=== PATIENT | male | born 1955 | race Caucasian/White ===

== ENCOUNTER 2019-05-23 20:28 | Inpatient (IN) | payer BC ==
[2019-05-23] MEDS ORDERED: NS 0.9% 1000 ML** 1,000 ML IV ONE (20:35)
[2019-05-23] MEDS ORDERED: fentaNYL* 50 MCG/ML 2 ML VIAL (100 MCG VIAL) IV SLOW PU ONE (20:35)
--- NOTE | 2019-05-23 20:47 | ED ---
Abdominal Pain/Male - HPI Summary HPI Summary: Patient is a 63 y/o M presenting to [facility] via EMS from [facility] for evaluation of confirmed perforated bowel. Patient had onset of abdominal pain around 1500 05/23/19. Pain worsened later in the day. EMS has administered 100 mcg of fentanyl approximately 45 minutes [employer]LECT[employer]TA[employer] AD[employer]. Patient describes his current pain as severe and notes movement aggravates his pain. Chest pain is denied. He denies history of abdominal surgery. On triage, pain is rated 7/10. PMHx if diabetes and HLD noted. Home medications and allergies are reviewed. - History of Current Complaint Stated Complaint: ABD PAIN/PERORATED BOWEL PER EMS Time Seen by Provider: 05/23/19 20:33 Hx Obtained From: Patient Onset/Duration: Still Present Timing: Constant Severity Currently: Severe Pain Scale Used: 0-10 Numeric Aggravating Factor(s): Movement Associated Signs And Symptoms: Negative: Chest Pain - Allergies/Home Medications Allergies/Adverse Reactions: Allergies Allergy/AdvReac Type Severity Reaction Status Date / Time No Known Allergies Allergy Verified 05/23/19 20:55 Home Medications: Home Medications Atorvastatin* [Lipitor*] 20 mg PO QPM 05/23/19 [History Confirmed 05/23/19] Enalapril TAB* [Vasotec TAB*] 20 mg PO DAILY 05/23/19 [History Confirmed ] Fenofibrate [Tricor 160 MG] 160 mg PO DAILY 05/23/19 [History Confirmed 05/23/19 ] Metformin HCl 1,000 mg PO ONCE 05/23/19 [History Confirmed 05/23/19] Metformin HCl 500 mg PO BEDTIME 05/23/19 [History Confirmed 05/23/19] PMH/Surg Hx/FS Hx/Imm Hx Endocrine/Hematology History: Reports: Hx Diabetes Cardiovascular History: Reports: Hx Hypercholesterolemia - Family History Known Family History: Positive: Other - throat CA - Social History Alcohol Use: None Substance Use Type: Reports: None Smoking Status (MU): Never Smoked Tobacco Review of Systems Negative: Chest Pain Positive: Abdominal Pain All Other Systems Reviewed And Are Negative: Yes Physical Exam - Summary Physical Exam Summary: Appearance: Well-appearing, Well-nourished, lying in bed comfortably Skin: Warm, dry, no obvious rash Eyes: sclera anicteric, no conjunctival pallor ENT: mucous membranes moist, pharynx appears normal Neck: Supple, nontender Respiratory: Clear to auscultation, no signs of respiratory distress Cardiovascular: Normal S1, S2. No murmurs. Normal distal pulses in tibial and radial bilaterally. Abdomen: Diffusely rigid abdomen noted, normal active bowel sounds present Musculoskeletal: Normal, Strength/ROM Intact Neurological: A&Ox3, awake and alert, mentation is normal, speech is fluent and appropriate Psychiatric: affect is normal, does not appear anxious or depressed Triage Information Reviewed: Yes Vital Signs Reviewed: Yes Procedures - Sedation Patient Received Moderate/Deep Sedation with Procedure: No Diagnostics - Laboratory Lab Statement: Any lab studies that have been ordered have been reviewed, and results considered in the medical decision making process. - EKG 2140 Cardiac Rate: Tachycardia - rate of 105 BPM EKG Rhythm: Sinus Tachycardia Summary of EKG Findings: EKG showed sinus tachycardia with rate of 105 BPM, borderline left axis deviation, borderline T abnormalities, inferior leads. No STEMI. ED physician has reviewed and interpreted this EKG. Abdominal Pain Male Course/Dx - Course Course Of Treatment: Patient is a 63 y/o M presenting to [facility] via EMS from [facility] for evaluation of confirmed perforated bowel. Patient had onset of abdominal pain around 1500 05/23/19. Pain worsened later in the day. EMS has administered 100 mcg of fentanyl approximately 45 minutes [employer] AD[employer]. Patient describes his current pain as severe and notes movement aggravates his pain. Chest pain is denied. On exam, patient's abdomen is noted to be diffusely rigid. EKG showed sinus tachycardia with rate of 105 BPM, borderline left axis deviation, borderline T abnormalities, inferior leads. No STEMI. Patient's case was discussed with Dr. Loya. He accepts patient to his services and will evaluate the patient in ED. - Diagnoses Provider Diagnoses: Perforated bowel - Provider Notifications Discussed Care Of Patient With: Martin Loya Time Discussed With Above Provider: 20:47 Instructed by Provider To: Other - Patient's case was discussed with Dr. Loya. He accepts patient to his services and will evaluate the patient in ED. Discharge ED - Sign-Out/Discharge Documenting (check all that apply): Patient Departure - admit All imaging exams completed and their final reports reviewed: No Studies - Discharge Plan Condition: Fair Disposition: ADMITTED TO [facility] - Billing Disposition and Condition Condition: FAIR Disposition: Admitted to [facility] - Attestation Statements Document Initiated by Tiki: Yes Documenting Scribe: VANESSA ARAMBULA Provider For Whom Tiki is Documenting (Include Credential): IDA SHELDON MD Scribe Attestation: I, VANESSA ARAMBULA, scribed for IDA SHELDON MD on 05/25/19 at 0501. Scribe Documentation Reviewed: Yes Provider Attestation: The documentation as recorded by the VANESSA sellers accurately reflects the service I personally performed and the decisions made by me, IDA SHELDON MD Status of Scribe Document: Viewed
[2019-05-23] MEDS ORDERED: ceFOXitin 2 GM IVPREMIX* 0 GM/0 ML BAG ONE (22:07)
--- NOTE | 2019-05-23 22:07 | HP ---
H&P (Free Text) History and Physical: cc: upper abdominal pain HPI: 63 yo M withe DM2, kidney stones, hyperlipidemia presented to [facility] with severe abdominal pain since 3pm. He has a day of upper abdominal pain with no associated N/V/D. No F/C. His appetite has been normal. He last ate a sandwich for lunch today. He then developed severe, stabbing pain and was unable to drive himself so his friend drove him. He did try Mylanta and thought that helped. He denies use of NSAIDs. He denies similar pain in the past. Currently his accompanies him. He had abnorma LFTs and BUN/Cr at [place]. CT scan without contrast showed free air. He was transferred to the [facility] ED. PMH: DM2, hyperlipidemia, nephrolithiasis PSH: surgical removal of kidney stones. 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 age 57, had "blood clots"; M from throat cancer age 82. ROS: pertinent +/- as reported above, otherwise 14 point review completed and negative. PE: Vital Signs Temp 98.9 F 05/23/19 20:32 Pulse 101 05/23/19 20:32 Resp 20 05/23/19 20:54 BP 155/87 05/23/19 20:32 Pulse Ox 97 05/23/19 20:32 Intake & Output 05/23/19 05/23/19 05/24/19 06:59 18:59 06:59 Weight 173 lb Gen: WDWN M lying in ED stretcher; A&Ox3. Neck: symmetrical, trachea M/L. Chest: CTA B; reg s1s2 Abd: no scars; rigid and diffusely tender with no BS Ext: warm; no c/c/e; no CT Lab from [place] reviewed. CT images reviewed by me and notable for free air and ascites. Impression: 63 yo M with acute abdomen, perforated viscus, most likely a perforated ulcer. Plan: To OR for laparoscopy/possible laparotomy for diagnosis and treatment of perforated viscus. The procedure was discussed as was need for general anesthesia. I explained that findings at the time of surgery would dictate the procedure performed and that he may need other surgeries in the future as well. The indications, risks, benefits, alternatives and option of no treatment were discussed. Risks were explained including, not limited to: bleeding, infection, pain, blood clots, pneumonia, cardiac events, N/V, hernia, SBO, and risk of anesthesia. All questions were answered. He stated his understanding and agreed to proceed.
[2019-05-23] MEDS ORDERED: fentaNYL* 50 MCG/ML 2 ML VIAL (100 MCG VIAL) ONE ×3 (22:12→23:37)
[2019-05-23] MEDS ORDERED: Rocuronium* 10 MG/ML VIAL ONE (22:20)
[2019-05-23] MEDS ORDERED: Midazolam* 1 MG/ML 2 ML VIAL (2 MG) ONE (22:21)
[2019-05-23] MEDS ORDERED: Bupivacaine 0.25% EPI 200,000* 30 ML SDV ONE (22:21)
[2019-05-23] MEDS ORDERED: Phenylephrine 40 MCG/ML SYRINGE ONE (23:06)
[2019-05-23] MEDS ORDERED: Phenylephrine 10 MG/ML VIAL* 1 ML VIAL ONE (23:06)
[2019-05-23] MEDS ORDERED: EPHEDrine (Pressors)* 50 MG/ML VIAL ONE (23:06)
[2019-05-23] MEDS ORDERED: Succinylcholine* 20 MG/ML 10 ML VIAL ONE (23:06)
[2019-05-23] MEDS ORDERED: DiMENhydriNATE IV* 50 MG/ML VIAL ONE (23:06)
[2019-05-23] MEDS ORDERED: Propofol* 10 MG/ML 20 ML BTL ONE (23:06)
[2019-05-23] MEDS ORDERED: Ondansetron INJ* 2 MG/ML VIAL ONE (23:06)
[2019-05-23] MEDS ORDERED: Ketorolac INJ* 30 MG/ML 1 ML VIAL ONE (23:06)
[2019-05-23] MEDS ORDERED: Lidocaine 2% PF * 5 ML VIAL ONE (23:06)
[2019-05-23] MEDS ORDERED: Dexamethasone IV* 4 MG/ML 1 ML (4 MG) ONE (23:06)
[2019-05-24] MEDS ORDERED: Neostigmine Methylsulfate* 1 MG/ML 10 ML VIAL (1 mg/ml) ONE (00:02)
[2019-05-24] MEDS ORDERED: Glycopyrrolate IV* 0.2 MG/ML 1 ML VIAL ONE (00:02)
[2019-05-24] MEDS ORDERED: Naloxone* 0.4 MG/ML 1 ML VIAL IV PRN (00:30)
[2019-05-24] MEDS ORDERED: HYDROmorphone INJ1* 1 MG/ML SYRINGE IV PRN (00:30)
[2019-05-24] MEDS ORDERED: Ondansetron INJ* 2 MG/ML VIAL IV PRN ×2 (00:30→00:54)
--- NOTE | 2019-05-24 01:03 | OP ---
Operative Report - Blank - Operative Report Date of Operation: 05/24/19 Note: PREOP DX:PERFORATED VISCUS POSTOP DX:PERFORATED GASTRIC ULCER PROC:LAP PRIMARY REPAIR OF ABOVE WITH OMENTAL PATCH SURG:MECENAS ASSIST:NONE ANES:GET;FLUFAS EBL:<30ML IVF:2.6 L CRYSTALLOID SPEC:NONE DRAIN:7MM SABI COMPL:NONE COND:STABLE TO RR FINDINGS:ANTERIOR PERFORATION OF PREPYLORIC ULCER WITH DIFFUSE PERITONITIS/ GASTRIC FLUID THROUGHOUT ABDOMEN CIRRHOTIC APPEARING LIVER
[2019-05-24] MEDS: Pantoprazole IV* 40 MG IV SCH ×3 (01:32→21:15)
[2019-05-24] MEDS ORDERED: ceFAZolin 2 GM PREMIX in ORs 2 GM/50 ML BAG IVPB SCH (02:00)
[2019-05-24] MEDS: NS 0.9% 1000 ML** 1,000 ML IV SCH ×3 (02:40→22:49)
[2019-05-24] MEDS: ceFAZolin 1 GM* Q8H (AddVan) IVPB SCH ×6 (02:56→18:57)
--- NOTE | 2019-05-24 03:51 | CONS ---
CC: Dr. Martin Loya; Dr. Kian Hawk * CONSULTATION REPORT: DATE OF CONSULT: 05/24/19 REFERRING PHYSICIAN: Dr. Loya. REASON FOR CONSULT: Postop management for diabetes and history of hypertension. HISTORY OF PRESENT ILLNESS: This is a 63-year-old gentleman with past medical history of diabetes, hypertension, dyslipidemia, previous history of nephrolithiasis, who came into [facility] for severe abdominal pain since 3 p.m. There was no associated nausea, vomiting, diarrhea, fever, or chills. His appetite has been normal. He ate some chicken during lunch, after which he had severe pain. He tried Mylanta without much help, so he finally decided to go to the [facility], at which point, a CT scan at [facility] revealed the patient having free air in abdomen and the patient was subsequently sent to [facility] and accepted by Dr. Loya for an urgent surgical evaluation. The patient had perforated gastric ulcer, which was patched and Medicine was consulted to manage the patient postoperatively. Intraoperatively, the patient did have episode of hypotension requiring 3 L of IV fluids and some pressors, but postoperatively his blood pressure has been stable. PAST MEDICAL HISTORY: As mentioned type 2 diabetes, dyslipidemia, hypertension , and nephrolithiasis. PAST SURGICAL HISTORY: Removal of kidney stones and now also had repair of the perforated gastric ulcer with an omental patch. HOME MEDICATIONS: The patient is currently on: 1. Metformin 1000 mg oral daily and 500 mg at bedtime. 2. TriCor 160 mg oral daily. 3. Vasotec 20 mg oral daily. 4. Atorvastatin 20 mg every evening. ALLERGIES: No known drug allergies. FAMILY HISTORY: Father at age 57 due to some blood clots. Mother at age 82 with throat cancer. SOCIAL HISTORY: No history of smoking. Does drink alcohol occasionally. Denies any other drug abuse. 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 He is , with 3 kids. REVIEW OF SYSTEMS: A 14-point review of systems did not reveal any information. PHYSICAL EXAM: Postoperative vital signs show BP of 165/95, heart rate 96, respiration rate 15, saturating 99% on room air, temperature recorded at 97.3. In general, the patient is arousable, but still a little drowsy due to anesthesia still not wearing off, but was able to follow simple commands and is oriented to place. was present at bedside, answering most of the questions. Head and Neck Examination: Atraumatic, normocephalic. Bilateral pupils are reactive. Oral mucosa was dry. Neck: Supple. No jugular venous distention. Heart Examination: S1, S2. Regular rate and rhythm. Lungs: Clear to auscultation bilaterally. No wheezing, rhonchi, or rales. Abdomen: The patient had surgical scars from laparoscopic procedure performed today with overall soft abdomen. Extremities: No cyanosis, clubbing, or edema. DIAGNOSTIC STUDIES/LAB DATA: The labs from [facility] revealed WBC of 6.9, hemoglobin and hematocrit stable at 12.8 and 37.7, platelet count was noted to be 187. Comprehensive metabolic panel showed sodium of 143, potassium 4.4, chloride 110, bicarb of 19, BUN elevated at 36, and creatinine elevated at 1.2, elevated when compared to his baseline labs from January 2019. The patient does have elevated BUN of 32 and creatinine of 1.92. LFTs were within normal limits. Amylase was 122. CT abdomen and pelvis, I do not see full official read from [facility] records; however, there is a document which says that the physician at [facility] discussed with the radiologist, who stated that he had a bowel perforation along with several diverticula and inflammation present around the liver. IMPRESSION: This is a 63-year-old gentleman with diabetes, hypertension, dyslipidemia, here with acute bowel, perforated gastric ulcer noted to be hypotensive intraoperatively, for postop medical management. ASSESSMENT: 1. Perforated gastric ulcer, status post surgical correction. 2. History of diabetes, currently n.p.o. 3. History of dyslipidemia. 4. History of hypertension, was hypotensive intraoperatively. 5. History of chronic kidney disease with minimal elevation in baseline creatinine according to [facility] records. PLAN: The patient already had surgical repair. We will continue to monitor the patient and start the patient on fingerstick monitoring. Hold his home medications including metformin, his cholesterol medications, and his blood pressure medications in light of his hypotensive episode intraoperatively. Once his blood pressures recover and his fingersticks improve, we can consider starting the patient on sliding scale insulin based on his repeat creatinine. In the meantime, we will continue with IV hydration and repeat labs in the morning. DVT prophylaxis with sequential compression device. [id number]/[facility] #: [id number] [facility]
[2019-05-24 07:34] LABS: Urine Appearance Clear; Urine Bilirubin Negative (Negative); Urine Blood 2+ (Negative); Urine Color Yellow; Urine Glucose 1+(50 mg/dL) (Negative); Urine Ketones Negative (Negative); Urine Nitrite Negative (Negative); Urine Protein Negative (Negative); Urine Urobilinogen Negative (Negative)
[2019-05-24 07:35] LABS: Urine Bacteria Absent (Absent); Urine Red Blood Cell 2+(6-10/hpf) (Absent); Urine White Blood Cell Absent (Absent)
--- NOTE | 2019-05-24 08:04 | OP ---
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 ANESTHESIA: General endotracheal. ANESTHESIOLOGIST: Radha Pedro MD PRE-OP DIAGNOSIS: Perforated viscus. POST-OP DIAGNOSIS: Perforated gastric ulcer. OPERATIVE PROCEDURE: Laparoscopic primary repair of perforated gastric ulcer with omental patch. ESTIMATED BLOOD LOSS: Less than 30 mL. IV FLUIDS: 2.1 L crystalloid. SPECIMEN: None. DRAINS: 7-mm Dontae Goodwin. COMPLICATIONS: None. COUNTS: Instrument, needle, sponge counts correct. DESCRIPTION OF PROCEDURE: The patient was brought to the operating room, placed on the table supine. Sequential compression devices were placed on both lower extremities. General anesthesia was administered. He was given Serra catheter. His abdomen was prepped and draped in the usual sterile fashion. A time-out was performed. Local anesthetic was infiltrated into the skin and soft tissue prior to making each incision. Entry to the abdomen was through a transumbilical vertical incision using an open technique. After accessing the peritoneal cavity, a 5 mm trocar was placed and carbon dioxide was insufflated to a pressure of 15 mmHg. A 5 mm 30-degree laparoscope was introduced. There was noted to be gastric fluid surrounding the liver with extensive peritonitis and exudate over the upper abdominal viscera. Under direct visualization, an 11-mm trocar was placed in the right upper quadrant and a 5-mm trocar was placed in the epigastrium in the midline. Copious lavage of the abdomen was performed with 6 L of saline. Inspection of the liver revealed it appeared cirrhotic. The gallbladder appeared to be secondarily inflamed due to the peritonitis. Inspection of the anterior surface of the stomach revealed that there is a 1 cm sized perforation in the prepyloric region. A full thickness suture 2-0 silk was placed across this and that was sutured closed and then a tongue of omentum was drawn over this and sutured to buttress the repair. Additional lavage was performed throughout the abdomen in all 4 quadrants and in the pelvis. A 7-mm Dontae-Goodwin drain was placed into the abdominal cavity, with-drawn through the 5-mm epigastric trocar site and sutured to the skin with a 3-0 Prolene suture. It was placed through a suction bulb. All the ports were then removed under direct visualization and carbon dioxide was released. The umbilical wound and the left upper quadrant wound were closed with 0-Vicryl to approximate the fascia. Skin incisions were closed with 4-0 Monocryl. DermaFlex was applied to the umbilicus and left upper quadrant site. Drain sponge was placed around the drain. The patient was subsequently extubated uneventfully and transferred to the Recovery stable. [id number]/[facility] #: [id number] [facility]
[2019-05-24] MEDS: HYDROmorphone INJ* 0.5 MG/0.5 ML SYRINGE IV SLOW PU PRN ×2 (11:02→19:56)
--- NOTE | 2019-05-24 16:17 | PN ---
Subjective Date of Service: 05/24/19 Interval History: Patient reports abd pain , improved from admission Denies chest pain or shortness of breath. Denies fever or chills. NG to LWS - small amount of drainage Family History: Unchanged from Admission Social History: Unchanged from Admission Past Medical History: Unchanged from Admission Objective Active Medications: Hydromorphone HCl (Dilaudid Inj*) 0.5 mg IV SLOW PU Q4H PRN PRN Reason: PAIN - MODERATE Last Admin: 05/24/19 11:02 Dose: 0.5 mg Sodium Chloride (Ns 0.9% 1000 Ml) 1,000 mls @ 100 mls/hr IV PER RATE [facility] Last Admin: 05/24/19 12:43 Dose: 100 mls/hr Cefazolin Sodium 1 gm/ Sodium (Chloride) 50 mls @ 200 mls/hr IVPB Q8H [facility] Last Admin: 05/24/19 10:49 Dose: 200 mls/hr Ondansetron HCl (Zofran Inj*) 4 mg IV Q4H PRN PRN Reason: NAUSEA/VOMITING Pantoprazole Sodium (Protonix Iv*) 40 mg IV Q12HR [facility] Last Admin: 05/24/19 09:23 Dose: 40 mg Vital Signs - 8 hr 05/24/19 05/24/19 05/24/19 09:39 11:02 11:35 Temperature 99.0 F 98.2 F Pulse Rate 108 106 Respiratory 18 18 16 Rate Blood Pressure 140/69 120/58 (mmHg) O2 Sat by Pulse 97 99 Oximetry 05/24/19 05/24/19 12:45 15:08 Temperature 97.9 F Pulse Rate 96 Respiratory 16 19 Rate Blood Pressure 130/76 (mmHg) O2 Sat by Pulse 96 Oximetry Oxygen Devices in Use Now: None Appearance: alert and oriented x 3, no acute distress Eyes: No Scleral Icterus Ears/Nose/Mouth/Throat: - - MM - dry Neck: NL Appearance and Movements; NL JVP, Trachea Midline Respiratory: Symmetrical Chest Expansion and Respiratory Effort, Clear to Auscultation Cardiovascular: NL Sounds; No Murmurs; No JVD, No Edema Abdominal: NL Sounds; No Tenderness; No Distention Extremities: No Edema Skin: No Rash or Ulcers Neurological: Alert and Oriented x 3 Nutrition: Taking PO's Result Diagrams: 05/25/19 08:41 05/25/19 08:41 Assess/Plan/Problems-Billing Assessment: Mr. Smith is a 63 y.o male with DM, HTN who presented to the ER with ABD pain - found to have perforated ulcer requiring surgical repair - Patient Problems (1) Perforated gastric ulcer Current Visit: Yes Status: Acute Code(s): K25.5 - CHRONIC OR UNSPECIFIED GASTRIC ULCER WITH PERFORATION SNOMED Code(s): 5299584 Comment: management per surgery (2) HTN (hypertension) Current Visit: Yes Status: Acute Code(s): I10 - ESSENTIAL (PRIMARY) HYPERTENSION SNOMED Code(s): 55654467 Comment: Hold BP medications for now SBP 109 (3) Diabetes type 2, controlled Current Visit: Yes Status: Acute Code(s): E11.9 - TYPE 2 DIABETES MELLITUS WITHOUT COMPLICATIONS SNOMED Code(s): 79190894 Comment: Fingersticks Q 4 hours hold metformin - will start lispro ss as needed (4) DVT prophylaxis Current Visit: Yes Status: Acute Code(s): Z29.9 - ENCOUNTER FOR PROPHYLACTIC MEASURES, UNSPECIFIED SNOMED Code(s): 737577281 Comment: SCD's (5) Full code status Current Visit: Yes Status: Acute Code(s): Z78.9 - OTHER SPECIFIED HEALTH STATUS SNOMED Code(s): 848677921 Status and Disposition: inpatient - disposition per surgery
--- NOTE | 2019-05-24 16:53 | PN ---
Progress Note - Progress Note Date of Service: 05/24/19 SOAP: Subjective: [] Martin is a pleasant 63 yo male POD #0 s/p Repair of Perforated Gastric Ulcer with Omental Patch. Pt is NPO, NGT in place. He denies passing flatus. No BM. Pt states that his pain is well improved following surgery early this AM. He rates his current pain as a 6/10 located in the epigastric region. He states his pain increases with movement and coughing. He tells me he is eager to return to clear fluids and would like to return home as soon as possible. Pt states he has been ambulating frequently and independently with tolerable discomfort. He denies nausea, vomiting, diarrhea, chest pain and SOB. Objective: [] Vital Signs - 12 hr Temp Pulse Resp BP Pulse Ox 05/24/19 15:08 97.9 F 96 19 130/76 96 05/24/19 12:45 16 05/24/19 11:35 98.2 F 106 16 120/58 99 05/24/19 11:02 18 05/24/19 09:39 99.0 F 108 18 140/69 97 05/24/19 07:35 18 05/24/19 07:05 97.9 F 96 18 113/62 98 Intake & Output 05/24/19 05/24/19 05/24/19 06:59 14:59 22:59 Intake Total 2655 1045 60 Output Total 740 210 300 Balance 1915 835 -240 Weight 173 lb Intake: IV Fluids 2600 990 LR 2600 NS 990 IVPB 55 55 ABX - CEFAZOLIN 55 55 Oral 0 NG Tube Irrigate Amount 60 NGT 30 Output: NG Tube Drainage Amount 0 100 SABI #1 340 110 Serra 400 300 Other: # Bowel Movements 0 Examination: General: NAD, comfortably resting in chair sitting upright. Cardiovascular: Regular rate and rhythm. Respiratory: CTA throughout all diaz. Abdomen: Absent bowel sounds. Slightly distended, mildly tender to palpation in the RUQ & Epigastric region. NGT in place and on suction, total of 200cc bilous gastric aspirate since placement. Right SABI drain in place, additional 25cc serosanguineous drainage noted during examination. Peripheral Vascular: Radial and pedal pulses 2+, cap refill <2 sec b/l. Calves soft and non-tender b/l. No peripheral edema. Assessment: [] POD #0 s/p Repair of Perforated Gastric Ulcer with Omental Patch. Pt is doing well, ambulating independently with tolerable discomfort. He is eager to return to normal diet. Plan: [] Remains NPO with NGT. CBC and CMP in AM. Will discuss with Dr. Loya
[2019-05-25] MEDS: ceFAZolin 1 GM* Q8H (AddVan) IVPB SCH ×6 (03:45→18:27)
[2019-05-25] MEDS: NS 0.9% 1000 ML** 1,000 ML IV SCH (07:57)
[2019-05-25 09:00] LABS: ABS Eosinophils 0.2 10^3/ul (0-0.6); ABS Lymphocytes 0.7 10^3/ul (1.0-4.8); ABS Monocytes 0.6 10^3/ul (0-0.8); ABS Neutrophils 3.8 10^3/ul (1.5-7.7); Eosinophil % 3.5 %; Hematocrit 33 % (42-52); Hemoglobin 11.2 g/dL (14.0-18.0); Lymphocyte % 13.5 %; Mean Corpuscular HGB Conc 34 g/dL (31-36); Mean Corpuscular Hemoglobin 34 pg (27-31); Mean Corpuscular Volume 101 fL (80-94); Mean Platelet Volume 8.2 fL (7.4-10.4); Platelet Count 102 10^3/uL (150-450); Red Blood Count 3.25 10^6 /uL (4.18-5.48); Red Cell Distribution Width 14 % (10-15); White Blood Count 5.3 10^3/uL (3.5-10.8)
[2019-05-25 09:26] LABS: Albumin 2.8 g/dL (3.2-5.2); Albumin/Globulin Ratio 1.1 (1-3); BUN/Creatinine Ratio 17.4 (8-20); Calcium 7.8 mg/dL (8.6-10.3); EGFR African American 36.8 (>60); EGFR Non-African American 30.4 (>60); Globulin 2.5 g/dL (2-4); Potassium 4.4 mmol/L (3.5-5.0); Total Bilirubin 0.8 mg/dL (0.2-1.0); Total Protein 5.3 g/dL (6.4-8.9)
[2019-05-25] MEDS: Pantoprazole IV* 40 MG IV SCH ×2 (09:56→20:31)
--- NOTE | 2019-05-25 12:18 | PN ---
Progress Note - Progress Note Date of Service: 05/25/19 Note: S: POD #2. Some pain, though not using much pain medication. Less than yesterday. c/o feeling dry; would like water. No flatus or BM. Ambulating. present. Apparently no prior hx of renal insufficiency that they are aware of. O: Vital Signs - 8 hr 05/25/19 05/25/19 05/25/19 07:42 08:00 08:10 Temperature 98.1 F 97.9 F Pulse Rate 95 97 Respiratory 18 18 18 Rate Blood Pressure 127/65 137/67 (mmHg) O2 Sat by Pulse 98 97 Oximetry 05/25/19 11:29 Temperature 98.1 F Pulse Rate 98 Respiratory 17 Rate Blood Pressure 141/65 (mmHg) O2 Sat by Pulse 98 Oximetry Intake and Output Last 24 Hours 05/23/19 05/24/19 05/25/19 05/26/19 06:59 06:59 06:59 06:59 Intake Total 2655 2206 914 Output Total 740 1320 Balance 1915 886 914 Weight 173 lb Intake: IV Fluids 2600 1981 914 LR 2600 NS 1980 914 IVPB 55 165 ABX - CEFAZOLIN 55 165 Oral 0 0 NG Tube Irrigate Amount 60 NGT 30 Output: NG Tube Drainage Amount 0 300 SABI #1 340 170 Serra 400 850 Other: # Bowel Movements 0 Gen: lying in bed; NAD; appears mildly uncomfortable Heart: reg Lungs: clear Abd: NG: min light drainage; SABI: light clear serosang drainage; BS hypoactive; soft; moderate tenderness, maco Right side; min tenderness Left side; lap sites ok. Labs: Laboratory Tests 05/25/19 05/25/19 08:41 08:41 WBC 5.3 Hgb 11.2 L BUN 38 H Creatinine 2.19 H Glucose 136 H Albumin 2.8 L fs glucoses 150- 167 A: s/p laparoscopic repair of perf'd gastric ulcer, doing ok, though w/ likely ileus; mild renal insufficiency P: (discussed w/ Dr. Loya) will d/c Serra, but continue to monitor I&O; change IVF to D5LR; monitor renal fct; fs glucoses have been reasonable-> will d/c. Plan for UGI tomorrow; if ok, can prob d/c NG and start liq diet.
[2019-05-25] MEDS: D5LR 1000 ML BAG* 1,000 ML IV SCH ×2 (12:33→23:00)
--- NOTE | 2019-05-25 14:31 | PN ---
Subjective Date of Service: 05/25/19 Interval History: patient reports continue abd pain , worse with movement. states that overall is feeling a little better today. Denies chest pain or shortness of breath. Denies fever or chills. Denies nausea or vomiting. Family History: Unchanged from Admission Social History: Unchanged from Admission Past Medical History: Unchanged from Admission Objective Active Medications: Hydromorphone HCl (Dilaudid Inj*) 0.5 mg IV SLOW PU Q4H PRN PRN Reason: PAIN - MODERATE Last Admin: 05/24/19 19:56 Dose: 0.5 mg Cefazolin Sodium 1 gm/ Sodium (Chloride) 50 mls @ 200 mls/hr IVPB Q8H [facility] Last Admin: 05/25/19 12:10 Dose: 200 mls/hr Dextrose/Lactated Ringer's (D5lr 1000 Ml Bag*) 1,000 mls @ 100 mls/hr IV PER RATE [facility] Last Admin: 05/25/19 12:33 Dose: 100 mls/hr Ondansetron HCl (Zofran Inj*) 4 mg IV Q4H PRN PRN Reason: NAUSEA/VOMITING Pantoprazole Sodium (Protonix Iv*) 40 mg IV Q12HR [facility] Last Admin: 05/25/19 09:56 Dose: 40 mg Vital Signs - 8 hr 05/25/19 05/25/19 05/25/19 07:42 08:00 08:10 Temperature 98.1 F 97.9 F Pulse Rate 95 97 Respiratory 18 18 18 Rate Blood Pressure 127/65 137/67 (mmHg) O2 Sat by Pulse 98 97 Oximetry 05/25/19 11:29 Temperature 98.1 F Pulse Rate 98 Respiratory 17 Rate Blood Pressure 141/65 (mmHg) O2 Sat by Pulse 98 Oximetry Oxygen Devices in Use Now: None Appearance: appears comfortable , no acute distress Eyes: No Scleral Icterus Ears/Nose/Mouth/Throat: Clear Oropharnyx, Mucous Membranes Moist Neck: NL Appearance and Movements; NL JVP, Trachea Midline Respiratory: Symmetrical Chest Expansion and Respiratory Effort, Clear to Auscultation Cardiovascular: No Edema Abdominal: - - BS hypoactive x 4, abd soft tender to touch Extremities: No Edema, No Clubbing, Cyanosis Skin: No Rash or Ulcers Neurological: Alert and Oriented x 3 Nutrition: Taking PO's, - - NPO Result Diagrams: 05/25/19 08:41 05/25/19 08:41 Assess/Plan/Problems-Billing Assessment: Mr. Smith is a 63 y.o male with DM, HTN who presented to the ER with ABD pain - found to have perforated ulcer requiring surgical repair - Patient Problems (1) Perforated gastric ulcer Current Visit: Yes Status: Acute Code(s): K25.5 - CHRONIC OR UNSPECIFIED GASTRIC ULCER WITH PERFORATION SNOMED Code(s): 4469818 Comment: management per surgery Continue IVF Remains NPO (2) HTN (hypertension) Current Visit: Yes Status: Acute Code(s): I10 - ESSENTIAL (PRIMARY) HYPERTENSION SNOMED Code(s): 25556430 Comment: German continue to hold BP medications for now SBP 120-140 (3) Diabetes type 2, controlled Current Visit: Yes Status: Acute Code(s): E11.9 - TYPE 2 DIABETES MELLITUS WITHOUT COMPLICATIONS SNOMED Code(s): 11371685 Comment: Fingersticks Q 4 hours while npo hold metformin - will start lispro ss as needed (4) DVT prophylaxis Current Visit: Yes Status: Acute Code(s): Z29.9 - ENCOUNTER FOR PROPHYLACTIC MEASURES, UNSPECIFIED SNOMED Code(s): 348187735 Comment: SCD's (5) Full code status Current Visit: Yes Status: Acute Code(s): Z78.9 - OTHER SPECIFIED HEALTH STATUS SNOMED Code(s): 657815091 Status and Disposition: inpatient - disposition per surgery
[2019-05-26] MEDS: ceFAZolin 1 GM* Q8H (AddVan) IVPB SCH ×6 (03:57→18:25)
[2019-05-26 07:05] LABS: BUN/Creatinine Ratio 17.5 (8-20); Calcium 7.5 mg/dL (8.6-10.3); EGFR African American 42.4 (>60); Potassium 3.6 mmol/L (3.5-5.0)
[2019-05-26] MEDS: Pantoprazole IV* 40 MG IV SCH ×2 (08:20→20:11)
[2019-05-26] MEDS: D5LR 1000 ML BAG* 1,000 ML IV SCH ×3 (09:13→20:13)
--- NOTE | 2019-05-26 16:54 | PN ---
Subjective Date of Service: 05/26/19 Interval History: Patient evaluated in room up sitting in the chair , denies fever or chills, denies chest pain or shortness of breath. Denies n/v/d. NG to LWS Does report mild abd pain with palpation Family History: Unchanged from Admission Social History: Unchanged from Admission Past Medical History: Unchanged from Admission Objective Active Medications: Hydromorphone HCl (Dilaudid Inj*) 0.5 mg IV SLOW PU Q4H PRN PRN Reason: PAIN - MODERATE Last Admin: 05/24/19 19:56 Dose: 0.5 mg Cefazolin Sodium 1 gm/ Sodium (Chloride) 50 mls @ 200 mls/hr IVPB Q8H [facility] Last Admin: 05/26/19 10:58 Dose: 200 mls/hr Dextrose/Lactated Ringer's (D5lr 1000 Ml Bag*) 1,000 mls @ 100 mls/hr IV PER RATE [facility] Last Admin: 05/26/19 09:13 Dose: 100 mls/hr Ondansetron HCl (Zofran Inj*) 4 mg IV Q4H PRN PRN Reason: NAUSEA/VOMITING Pantoprazole Sodium (Protonix Iv*) 40 mg IV Q12HR [facility] Last Admin: 05/26/19 08:20 Dose: 40 mg Vital Signs - 8 hr 05/26/19 05/26/19 12:29 15:27 Temperature 97.9 F 98.3 F Pulse Rate 79 79 Respiratory 16 17 Rate Blood Pressure 122/57 127/66 (mmHg) O2 Sat by Pulse 100 98 Oximetry Oxygen Devices in Use Now: None Appearance: alert, color pink , no acute distress Eyes: No Scleral Icterus Ears/Nose/Mouth/Throat: Clear Oropharnyx, Mucous Membranes Moist Neck: NL Appearance and Movements; NL JVP, Trachea Midline Respiratory: Symmetrical Chest Expansion and Respiratory Effort, Clear to Auscultation Cardiovascular: NL Sounds; No Murmurs; No JVD, No Edema Abdominal: - - tenderness with palpation, BS hypoactive Extremities: No Clubbing, Cyanosis Skin: No Rash or Ulcers Neurological: Alert and Oriented x 3 Nutrition: Taking PO's Result Diagrams: 05/25/19 08:41 05/26/19 06:01 Assess/Plan/Problems-Billing Assessment: Mr. Smith is a 63 y.o male with DM, HTN who presented to the ER with ABD pain - found to have perforated ulcer requiring surgical repair - Patient Problems (1) Perforated gastric ulcer Current Visit: Yes Status: Acute Code(s): K25.5 - CHRONIC OR UNSPECIFIED GASTRIC ULCER WITH PERFORATION SNOMED Code(s): 1757127 Comment: management per surgery Continue IVF Remains NPO (2) HTN (hypertension) Current Visit: Yes Status: Acute Code(s): I10 - ESSENTIAL (PRIMARY) HYPERTENSION SNOMED Code(s): 27456879 Comment: German continue to hold BP medications for now SBP 120-140 (3) Diabetes type 2, controlled Current Visit: Yes Status: Acute Code(s): E11.9 - TYPE 2 DIABETES MELLITUS WITHOUT COMPLICATIONS SNOMED Code(s): 64741970 Comment: Fingersticks Q 4 hours while npo hold metformin - will start lispro ss as needed (4) Chronic kidney disease Current Visit: Yes Status: Acute Code(s): N18.9 - CHRONIC KIDNEY DISEASE, UNSPECIFIED SNOMED Code(s): 880134327 Comment: creatinine on 05/23 was 2.2 and BUN 36 - at [facility] remains stable will continue to monitor (5) DVT prophylaxis Current Visit: Yes Status: Acute Code(s): Z29.9 - ENCOUNTER FOR PROPHYLACTIC MEASURES, UNSPECIFIED SNOMED Code(s): 362606512 Comment: SCD's (6) Full code status Current Visit: Yes Status: Acute Code(s): Z78.9 - OTHER SPECIFIED HEALTH STATUS SNOMED Code(s): 809034556 Status and Disposition: inpatient - disposition per surgery
[2019-05-26] MEDS ORDERED: HYDROcodone/ACETAMIN 5-325 MG* 1 TAB PO PRN (17:17)
[2019-05-26] MEDS ORDERED: Acetaminophen TAB* 325 MG PO PRN (17:17)
--- NOTE | 2019-05-26 17:24 | PN ---
Progress Note - Progress Note Date of Service: 05/26/19 Note: S: POD #3. Doing well; less pain. Had BM. Ambulating. O: Vital Signs - 8 hr 05/26/19 05/26/19 12:29 15:27 Temperature 97.9 F 98.3 F Pulse Rate 79 79 Respiratory 16 17 Rate Blood Pressure 122/57 127/66 (mmHg) O2 Sat by Pulse 100 98 Oximetry Intake and Output Last 24 Hours 05/24/19 05/25/19 05/26/19 05/27/19 06:59 06:59 06:59 06:59 Intake Total 2655 2206 2404 1010 Output Total 740 1320 1965 900 Balance 1915 886 439 110 Weight 173 lb Intake: IV Fluids 2600 1981 2349 980 D5W LR 980 LR 2600 NS 1980 2349 IVPB 55 165 55 ABX - CEFAZOLIN 55 165 55 Oral 0 0 0 NG Tube Irrigate Amount 60 30 NGT 30 Output: NG Tube Drainage Amount 0 300 800 500 SABI #1 340 170 40 Urine 650 400 Serra 400 850 475 Other: # Bowel Movements 0 Gen: appears comfortable Heart: reg Lungs: clear Abd: +BS; obese, mildly distended; non-tympanitic; soft; mild, mostly R-sided tenderness, but less vs past two days; SABI w/ light, clear serosang drainage. UGI: no obstruction or extravasation A: s/p lap repair perf'd gastric ulcer, cont to improve P: d/c NG (done); start clear liquids; adv as robby; likely d/c home in 1-2 d on PPI (stool for H pylori still to be obtained)
[2019-05-27] MEDS: ceFAZolin 1 GM* Q8H (AddVan) IVPB SCH ×6 (03:14→18:26)
[2019-05-27] MEDS: Pantoprazole IV* 40 MG IV SCH (08:29)
--- NOTE | 2019-05-27 11:23 | PN ---
Progress Note - Progress Note Date of Service: 05/27/19 SOAP: Subjective: Pt seen and examined. doing well. Wants to go home. some flatus, no pain H pylori spec not sent Objective: Temp Pulse Resp BP Pulse Ox 98.0 F 67 18 122/63 100 05/27/19 08:06 05/27/19 08:06 05/27/19 08:20 05/27/19 08:06 05/27/19 08:06 a and o x3, nad lungs clear b/l abdo: firm/ obese/ NT Guy serous no redness, hypoactive BS ext: edema Assessment: POD 3 lap omental patch Plan: home meds advance diet d/c planning
[2019-05-27] MEDS ORDERED: Atorvastatin* 20 MG TAB PO SCH (18:00)
[2019-05-27] MEDS: Pantoprazole TAB * 40 MG TAB PO SCH (20:25)
[2019-05-27] MEDS ORDERED: metFORMIN* 500 MG TAB PO SCH (21:00)
[2019-05-28] MEDS ORDERED: Clindamycin CAP* 150 MG PO ONE (03:00)
[2019-05-28 08:17] VITALS: BP 125/65
[2019-05-28] MEDS: Pantoprazole TAB * 40 MG TAB PO SCH (08:28)
[2019-05-28] MEDS ORDERED: Enalapril TAB* 20 MG PO SCH ×2 (09:00)
--- NOTE | 2019-05-28 10:21 | PN ---
Progress Note - Progress Note Date of Service: 05/28/19 SOAP: Subjective: Pt seen and examined. doing well. Wants to go home. pos BM, no pain Objective: Temp Pulse Resp BP Pulse Ox 98.1 F 71 16 125/65 100 05/28/19 07:30 05/28/19 07:30 05/28/19 08:20 05/28/19 07:30 05/28/19 07:30 a and o x3, nad abdo: soft/ obese/ NT Guy removed ext: wnl Assessment: POD 4 lap omental patch Plan: d/c home f/u in office
[2019-05-30 15:37] LABS: Stool Helicobacter pylori Ag Negative (Negative)
--- NOTE | 2019-05-31 20:00 | DS ---
CC: Kian Hawk MD * DISCHARGE SUMMARY: DATE OF ADMISSION: 05/24/19 DATE OF DISCHARGE: 05/28/19 DISCHARGE DIAGNOSIS: Perforated gastric ulcer. ADDITIONAL DIAGNOSES: 1. Type 2 diabetes. 2. Hyperlipidemia. 3. Nephrolithiasis. 4. Chronic kidney disease with elevation of baseline creatinine. PROCEDURES: He had a laparoscopic repair of perforated gastric ulcer with omental patch on 05/24/19. HOSPITAL COURSE: This is a 63-year-old gentleman with the above mentioned illnesses. He presented to the emergency room, having been transferred from [facility] with free air on CT imaging and was taken emergently to the operating room with diagnosis of perforated viscus. He underwent laparoscopy and was found to have an anterior perforation of an antral/prepyloric gastric ulcer. This was primarily repaired and then patched with omentum. Please refer to the operative report for full details. Postoperatively, the patient did well. He was transferred to the recovery room and consultation was obtained from hospitalist service for help with medical management. The patient's remaining hospital course was uneventful. He remained n.p.o. with an NG tube and SABI drain until 05/26/19 at which time he underwent upper GI series which revealed no leak. His NG tube was removed and his diet was advanced. On 05/28/19 he was tolerating a solid diet and he had no pain. He did have a bowel movement. His SABI drain was removed. He was maintained on a proton pump inhibitor during the hospitalization intravenously and this was converted to omeprazole 40 mg daily. He had stool testing for H. pylori which was negative. The patient was discharged to home in a stable condition. He was provided with instructions regarding activity, wound care and he was instructed to return to the [facility] office 4 to 7 days from discharge. [id number]/[facility] #: [id number] MTDD
== END 2019-05-28 10:50 | disposition home or self-care (01) | DRG 220 ==
LOC: ED 20:28 → OR 23:30 → OBSVTOIN 05-24 00:54 → SSU 05-24 00:54 → UNDOADMOB 05-24 02:22 → SSU 05-24 02:22
PROVIDERS: ADMIT Surgery; ATTEND Surgery
PROC: 0DU647Z Supplement Stomach with Autologous Tissue Substitute, Percutaneous Endoscopic Approach (ICD-10-PCS; principal; 2019-05-24)
DX: K25.5 Chronic or unspecified gastric ulcer with perforation (principal); K65.8 Other peritonitis; K91.89 Other postprocedural complications and disorders of digestive system; K56.7 Ileus, unspecified; I95.89 Other hypotension; E11.22 Type 2 diabetes mellitus with diabetic chronic kidney disease; I12.9 Hypertensive chronic kidney disease with stage 1 through stage 4 chronic kidney disease, or unspecified chronic kidney disease; N18.9 Chronic kidney disease, unspecified; E78.5 Hyperlipidemia, unspecified; K74.60 Unspecified cirrhosis of liver; Z79.84 Long term (current) use of oral hypoglycemic drugs; Z79.899 Other long term (current) drug therapy; Z83.2 Family history of diseases of the blood and blood-forming organs and certain disorders involving the immune mechanism; Z80.1 Family history of malignant neoplasm of trachea, bronchus and lung
CPT/HCPCS: 36415; 74246; 80048; 80053; 81003; 81015; 85025; 87338; 93005; 96374; 99283; A9270-GY; J0330; J0690; J0694; J1100; J1170; J1240; J1885; J2250; J2405; J2704; J2710; J3010

== ENCOUNTER 2019-09-10 10:40 | Emergency (ER) | payer MEDICARE, BC ==
[2019-09-10 11:59] LABS: INR 1.16 (0.82-1.09)
[2019-09-10 12:10] LABS: ALT 35 U/L (7-52); Albumin 3.5 g/dL (3.2-5.2); Albumin/Globulin Ratio 1.3 (1-3); Alkaline Phosphatase 128 U/L (34-104); Blood Urea Nitrogen 35 mg/dL (6-24); CO2 Carbon Dioxide 21 mmol/L (22-32); Calcium 8.9 mg/dL (8.6-10.3); Chloride 103 mmol/L (101-111); EGFR Non-African American 28.1 (>60); Globulin 2.7 g/dL (2-4); Sodium 130 mmol/L (135-145); Total Protein 6.2 g/dL (6.4-8.9)
[2019-09-10 12:17] LABS: Glucose 506 mg/dL (70-100)
[2019-09-10] MEDS ORDERED: Insulin REGULAR(*) 1 UNITS UNIT IV PUSH ONE (12:18)
[2019-09-10] MEDS ORDERED: NS 0.9% 1000 ML** 1,000 ML IV ONE (12:20)
--- NOTE | 2019-09-10 13:05 | ED ---
Lower Extremity - HPI Summary HPI Summary: Patient is a 64yo M with a hx of diabetes, HTN, HCL presenting to the ED with L lower ext swelling x 2 days. Denies SOB, CP, cough, congestion, DEL ROSARIO, abd pain or other sxs. 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 Denies fevers, sweats, chills. Minimal pain with ambulation, denies any discoloration. Currently on metformin, lisinopril, and atorvastatin. No hx of clots or blood thinners. No recent travel, smoking history or history of leg trauma. States he has been feeling otherwise well, has not been ill and has no other complaints. States he is medication compliant. Admits to eating immediately before arrival. Denies DEL ROSARIO. - History of Current Complaint Chief Complaint: EDExtremityLower Stated Complaint: LEFT LEG SWELLING Time Seen by Provider: 09/10/19 10:51 Hx Obtained From: Patient Onset of Pain: Days Onset/Duration: Days Severity Initially: Mild Severity Currently: Mild Pain Intensity: 0 Pain Scale Used: 0-10 Numeric Timing: Constant Location: Is Discrete @ - left lower ext Character Of Pain: Aching Associated Signs And Symptoms: Positive: Swelling. Negative: Redness, Bruising Aggravating Factor(s): Standing, Ambulation Alleviating Factor(s): Rest Able to Bear Weight: Yes - Risk Factors Gout Risk Factors: Negative DVT Risk Factors: Negative Septic Arthritis Risk Factor: Negative - Allergies/Home Medications Allergies/Adverse Reactions: Allergies Allergy/AdvReac Type Severity Reaction Status Date / Time No Known Allergies Allergy Verified 09/10/19 10:50 Home Medications: Home Medications Enalapril TAB* [Vasotec TAB*] 20 mg PO DAILY 05/23/19 [History Confirmed ] Fenofibrate [Tricor 160 MG] 160 mg PO DAILY 05/23/19 [History Confirmed 09/10/19 ] Metformin HCl 1,000 mg PO QAM 05/23/19 [History Confirmed 09/10/19] Metformin HCl 500 mg PO BEDTIME 05/23/19 [History Confirmed 09/10/19] Apixaban* [Eliquis*] 5 mg PO BID #42 tab 09/10/19 [Rx] Atorvastatin* [Lipitor*] 20 mg PO DAILY 09/10/19 [History Confirmed 09/10/19] metFORMIN* [Glucophage 1000 MG TAB *] 1,000 mg PO BID #30 tab 09/10/19 [Rx] PMH/Surg Hx/FS Hx/Imm Hx Previously Healthy: Yes Endocrine/Hematology History: Reports: Hx Diabetes Cardiovascular History: Reports: Hx Hypercholesterolemia GI History: Reports: Hx Ulcer Denies: Hx Gall Bladder Disease, Hx Gastroesophageal Reflux Disease, Hx Hiatal Hernia History: Reports: Hx Kidney Stones Denies: Hx Benign Prostatic Hyperplasia Musculoskeletal History: Denies: Hx Arthritis, Hx Back Problems Sensory History: Denies: Hx Contacts or Glasses, Hx Hearing Aid Opthamlomology History: Denies: Hx Contacts or Glasses - Surgical History Surgery Procedure, Year, and Place: 2018 exp lap Hx Anesthesia Reactions: No - Immunization History Hx Pertussis Vaccination: No Immunizations Up to Date: Yes Infectious Disease History: No Infectious Disease History: Denies: Traveled Outside the [place] in Last 30 Days - Family History Known Family History: Positive: Other - throat CA Negative: Blood Disorder - Social History Occupation: Employed Full-time Lives: With Family Alcohol Use: None Hx Substance Use: No Substance Use Type: Reports: None Hx Tobacco Use: No Smoking Status (MU): Never Smoked Tobacco Review of Systems Negative: Fever, Chills, Fatigue, Skin Diaphoresis Negative: Palpitations, Chest Pain Negative: Shortness Of Breath, Cough Positive: Other - LLE. Negative: Arthralgia, Myalgia Skin: Negative Neurological/Mental Status: Negative All Other Systems Reviewed And Are Negative: Yes Physical Exam Triage Information Reviewed: Yes Vital Signs On Initial Exam: Initial Vitals Temp Pulse Resp BP Pulse Ox 98.4 F 89 16 149/76 99 09/10/19 10:47 09/10/19 10:47 09/10/19 10:47 09/10/19 10:47 09/10/19 10:47 Vital Signs Reviewed: Yes Appearance: Positive: Well-Appearing, Well-Nourished Skin: Positive: Warm, Skin Color Reflects Adequate Perfusion Head/Face: Positive: Normal Head/Face Inspection Eyes: Positive: EOMI, ROBINSON, Conjunctiva Clear Neck: Positive: Supple, No Lymphadenopathy Respiratory/Lung Sounds: Positive: Clear to Auscultation, Breath Sounds Present Cardiovascular: Positive: Leg Edema Left Musculoskeletal: Positive: Normal, Strength/ROM Intact Neurological: Positive: Speech Normal Psychiatric: Positive: Normal, Affect/Mood Appropriate AVPU Assessment: Alert Procedures - Sedation Patient Received Moderate/Deep Sedation with Procedure: No Diagnostics - Vital Signs Vital Signs Temp Pulse Resp BP Pulse Ox 09/10/19 12:09 23 09/10/19 10:47 98.4 F 89 16 149/76 99 - Laboratory Lab Results: Lab Results 09/10/19 09/10/19 09/10/19 Range/Units 11:40 11:40 11:40 INR (Anticoag Therapy) 1.16 H (0.82-1.09) Sodium 130 L (135-145) mmol/L Potassium Pending Chloride 103 (101-111) mmol/L Carbon Dioxide 21 L (22-32) mmol/L Anion Gap Pending BUN 35 H (6-24) mg/dL Creatinine 2.34 H (0.67-1.17) mg/dL Est GFR ( Amer) 34.0 (>60) Est GFR (Non-Af Amer) 28.1 (>60) BUN/Creatinine Ratio 15.0 (8-20) Glucose 506 H* (70-100) mg/dL Lactic Acid 2.1 H* (0.5-2.0) mmol/L Calcium 8.9 (8.6-10.3) mg/dL Total Bilirubin 0.80 (0.2-1.0) mg/dL AST Pending ALT 35 (7-52) U/L Alkaline Phosphatase 128 H (34-104) U/L Troponin I 0.00 (<0.03) ng/mL Total Protein 6.2 L (6.4-8.9) g/dL Albumin 3.5 (3.2-5.2) g/dL Globulin 2.7 (2-4) g/dL Albumin/Globulin Ratio 1.3 (1-3) Result Diagrams: 09/10/19 11:40 Lab Statement: Any lab studies that have been ordered have been reviewed, and results considered in the medical decision making process. Lower Extremity Course/Dx - Course Course Of Treatment: Patient is evaluated for possible DVT. Left lower ext swelling with pitting +2. No swelling to the R lower ext. Patient denies SOB or CP. No evidence of phlegmasia cerulea dolens or phlegmasia alba dolens. US of the LLE obtained: EXTENSIVE DEEP VENOUS THROMBOSIS WITH CONTINUED JUST INVOLVEMENT FROM AT LEAST THE LEFT COMMON FEMORAL TO POPLITEAL VEIN. Patient does not have a clinical picture for PE, however base labs were obtained. Labs show sodium of 130, CO2 21, BUN 35, Cr 2.234 with a GFR of 28.1. Glucose 506 and lactic 2.1. Patient was given insulin 10 units and rehydrated with 1L fluids. Trop 0.00. A1C 8.1. Unable to obtain CTA of the chest, however patient is high risk d/t extensive involvement of the fem. Will place on Eliquis 5mg BID (no reduction required although patient borderline d/t kidney function), also will increase metformin to 1000mg BID and encouraged close f/u with Dr. Hawk regarding both of these medications. Strict return precautions were given to the patient. Continues to deny any further sxs. - Diagnoses Differential Diagnosis/HQI/PQRI: Positive: Other - hyperglycemia Provider Diagnoses: DVT (deep venous thrombosis) Discharge ED - Sign-Out/Discharge Documenting (check all that apply): Patient Departure - Discharge Plan Condition: Stable Disposition: HOME Prescriptions: Apixaban* [Eliquis*] 5 mg PO BID #42 tab metFORMIN* [Glucophage 1000 MG TAB *] 1,000 mg PO BID #30 tab Patient Education Materials: Apixaban (By mouth), Deep Vein Thrombosis (ED) Referrals: Kian Hawk MD [Primary Care Provider] - Additional Instructions: Take 1 tab twice daily of eliquis - start this today Increase your metformin to 1000mg twice daily Please follow up with Dr. Hawk as soon as possible If you develop any shortness of breath or heart racing - return to the ED immediately You are at a higher risk of bleeding - if you fall or hit your head - you need to come to the ED for evaluation - Billing Disposition and Condition Condition: STABLE Disposition: Home
[2019-09-10 13:34] LABS: Anion Gap 6 mmol/L (2-11)
[2019-09-10 14:10] VITALS: BP 117/63
== END 2019-09-10 14:10 | disposition home or self-care (01) ==
LOC: ED 10:40
DX: I82.402 Acute embolism and thrombosis of unspecified deep veins of left lower extremity (principal); E11.9 Type 2 diabetes mellitus without complications; I10 Essential (primary) hypertension; R60.9 Edema, unspecified; E78.00 Pure hypercholesterolemia, unspecified; Z79.899 Other long term (current) drug therapy; Z79.01 Long term (current) use of anticoagulants; Z87.442 Personal history of urinary calculi
CPT/HCPCS: 36415; 80053; 83036; 83605; 83880; 84484; 85610; 93005; 96360; 96361; 99283

== ENCOUNTER 2020-10-12 09:52 | Inpatient (IN) ==
[2020-10-12 10:37] LABS: ABS Basophils 0.1 10^3/ul (0-0.2); ABS Eosinophils 0.7 10^3/ul (0-0.6); ABS Lymphocytes 1.2 10^3/ul (1.0-4.8); ABS Monocytes 0.5 10^3/ul (0-0.8); ABS Neutrophils 2.8 10^3/ul (1.5-7.7); Eosinophil % 13.3 %; Hematocrit 38 % (42-52); Hemoglobin 13.4 g/dL (14.0-18.0); Lymphocyte % 23.1 %; Mean Corpuscular HGB Conc 35 g/dL (31-36); Mean Corpuscular Hemoglobin 33 pg (27-31); Mean Corpuscular Volume 96 fL (80-94); Mean Platelet Volume 8.4 fL (7.4-10.4); Nucleated Red Blood Cells % 0.3; Platelet Count 174 10^3/uL (150-450); Red Cell Distribution Width 14 % (10-15); White Blood Count 5.2 10^3/uL (3.5-10.8)
[2020-10-12] MEDS ORDERED: NS 0.9% 1000 ml BAG 1,000 ML IV ONE (10:40)
[2020-10-12 10:43] LABS: INR 1.13 (0.82-1.09)
[2020-10-12 10:50] LABS: ALT 22 U/L (7-52); Albumin 3.8 g/dL (3.2-5.2); Albumin/Globulin Ratio 1.2 (1-3); Alkaline Phosphatase 85 U/L (34-104); Blood Urea Nitrogen 32 mg/dL (6-24); CO2 Carbon Dioxide 20 mmol/L (22-32); Calcium 9.1 mg/dL (8.6-10.3); Chloride 111 mmol/L (101-111); EGFR African American 29.5 (>60); EGFR Non-African American 24.4 (>60); Globulin 3.2 g/dL (2-4); Glucose 298 mg/dL (70-100); Sodium 140 mmol/L (135-145)
[2020-10-12 11:40] LABS: Anion Gap 9 mmol/L (2-11)
[2020-10-12 12:31] LABS: Alcohol, S < 10 mg/dL (<10)
[2020-10-12 12:40] LABS: Urine Appearance Cloudy; Urine Bilirubin Negative (Negative); Urine Blood Negative (Negative); Urine Color Straw; Urine Glucose 3+(>=500 mg/dL) (Negative); Urine Ketones Negative (Negative); Urine Nitrite Negative (Negative); Urine Protein Negative (Negative); Urine Urobilinogen Negative (Negative)
[2020-10-12 12:55] LABS: TSH Ultra Thyroid Stim Horm 2.57 mcIU/mL (0.34-5.60)
[2020-10-12 13:04] LABS: Urine Benzodiazepine Screen None Detected (None Detect); Urine Cannabinoids Screen None Detected (None Detect); Urine Opiates Screen None Detected (None Detect)
[2020-10-12] MEDS ORDERED: Dextrose 50% Syringe 50 ml 25 GM/50 ML SYRINGE IV PUSH PRN (13:34)
[2020-10-12 13:42] LABS: C Reactive Protein 4.48 mg/L (<8.01)
[2020-10-12] MEDS ORDERED: Heparin 5000 UNITS/ML 1 mL VIAL SUBCUT SCH (14:00)
[2020-10-12 14:48] LABS: Vitamin B12 435 pg/mL (180-914)
[2020-10-12] MEDS: cefTRIAXone 2 GM ADDV.VIAL 2 GM in NS 0.9% 100 ml BAG 100 ML IV SCH (17:59)
[2020-10-12 18:14] LABS: Urine Appearance Clear; Urine Bilirubin Negative (Negative); Urine Blood 1+ (Negative); Urine Color Straw; Urine Glucose 2+(150 mg/dL) (Negative); Urine Ketones Negative (Negative); Urine Nitrite Negative (Negative); Urine Protein Negative (Negative); Urine Specific Gravity 1.012 (1.002-1.030); Urine Urobilinogen Negative (Negative)
[2020-10-12 18:25] LABS: Urine Bacteria Absent (Absent); Urine Red Blood Cell Trace(0-2/hpf) (Absent); Urine White Blood Cell Absent (Absent)
[2020-10-12] MEDS: NS 0.9% IVPB SCH (18:47)
[2020-10-12] MEDS: ACYCLOVIR IVPB SCH (18:47)
[2020-10-12 19:13] LABS: Erythrocyte Sed Rate 38 mm/Hr (0-19)
[2020-10-12] MEDS: Sodium Bicarb 650 mg (ANTACID) TAB PO SCH (20:53)
[2020-10-13] MEDS: cefTRIAXone 2 GM ADDV.VIAL 2 GM in NS 0.9% 100 ml BAG 100 ML IV SCH (04:22)
[2020-10-13] MEDS: NS 0.9% IVPB SCH ×2 (05:15→16:45)
[2020-10-13] MEDS: ACYCLOVIR IVPB SCH ×2 (05:15→16:45)
[2020-10-13 06:50] LABS: ABS Basophils 0.1 10^3/ul (0-0.2); ABS Eosinophils 0.7 10^3/ul (0-0.6); ABS Lymphocytes 1.7 10^3/ul (1.0-4.8); ABS Monocytes 0.5 10^3/ul (0-0.8); Eosinophil % 14.5 %; Hematocrit 33 % (42-52); Hemoglobin 11.6 g/dL (14.0-18.0); Mean Corpuscular HGB Conc 35 g/dL (31-36); Mean Corpuscular Hemoglobin 33 pg (27-31); Mean Corpuscular Volume 95 fL (80-94); Mean Platelet Volume 8.2 fL (7.4-10.4); Platelet Count 141 10^3/uL (150-450); Red Blood Count 3.48 10^6 /uL (4.18-5.48); Red Cell Distribution Width 14 % (10-15); White Blood Count 5.1 10^3/uL (3.5-10.8)
[2020-10-13 07:09] LABS: Calcium 8.6 mg/dL (8.6-10.3); EGFR African American 32.8 (>60); EGFR Non-African American 27.1 (>60); Potassium 3.7 mmol/L (3.5-5.0)
[2020-10-13] MEDS: Sodium Bicarb 650 mg (ANTACID) TAB PO SCH ×2 (08:31→19:21)
[2020-10-13 09:26] LABS: Activated Partial Thrombo Time 26.3 seconds (26.0-38.0); INR 1.16 (0.82-1.09)
[2020-10-13 11:54] LABS: CSF Glucose 118 mg/dL (40-70)
[2020-10-13 13:11] LABS: Glucose Confirmatory 565 mg/dL (70-100)
[2020-10-13] MEDS: Insulin GLARGINE 100 un/ml 10 ml VIAL SUBCUT SCH (19:21)
[2020-10-14] MEDS: ACYCLOVIR IVPB SCH ×2 (05:34→17:32)
[2020-10-14] MEDS: NS 0.9% IVPB SCH ×2 (05:34→17:32)
[2020-10-14] MEDS: Sodium Bicarb 650 mg (ANTACID) TAB PO SCH ×2 (08:51→21:59)
[2020-10-14 19:59] LABS: ABS Eosinophils 0.8 10^3/ul (0-0.6); ABS Lymphocytes 1.9 10^3/ul (1.0-4.8); ABS Monocytes 0.5 10^3/ul (0-0.8); ABS Neutrophils 2.8 10^3/ul (1.5-7.7); Eosinophil % 12.7 %; Hematocrit 38 % (42-52); Hemoglobin 13.4 g/dL (14.0-18.0); Lymphocyte % 31.7 %; Mean Corpuscular HGB Conc 36 g/dL (31-36); Mean Corpuscular Hemoglobin 34 pg (27-31); Mean Corpuscular Volume 95 fL (80-94); Mean Platelet Volume 7.9 fL (7.4-10.4); Nucleated Red Blood Cells % 0.1; Platelet Count 187 10^3/uL (150-450); Red Blood Count 3.96 10^6 /uL (4.18-5.48); Red Cell Distribution Width 14 % (10-15)
[2020-10-14 20:20] LABS: Calcium 9.1 mg/dL (8.6-10.3); EGFR African American 28.5 (>60); EGFR Non-African American 23.6 (>60)
[2020-10-14 20:26] LABS: Potassium 4.7 mmol/L (3.5-5.0)
[2020-10-14] MEDS: Insulin GLARGINE 100 un/ml 10 ml VIAL SUBCUT SCH (21:57)
[2020-10-14] MEDS: Heparin 5000 UNITS/ML 1 mL VIAL SUBCUT SCH (21:59)
[2020-10-15] MEDS: ACYCLOVIR IVPB SCH ×2 (05:45→17:43)
[2020-10-15] MEDS: NS 0.9% IVPB SCH ×2 (05:45→17:43)
[2020-10-15] MEDS: Heparin 5000 UNITS/ML 1 mL VIAL SUBCUT SCH ×3 (05:45→21:13)
[2020-10-15] MEDS: Sodium Bicarb 650 mg (ANTACID) TAB PO SCH ×2 (09:35→21:15)
[2020-10-15 12:51] LABS: Body Fluid Source Cerebral Spinal
[2020-10-15 13:47] LABS: Body Fluid Mono 38 %
[2020-10-15 17:16] LABS: HSV 1 PCR, CSF Negative (Negative); HSV 2 PCR, CSF Negative (Negative)
[2020-10-15] MEDS ORDERED: Insulin GLARGINE 100 un/ml 10 ml VIAL SUBCUT SCH (21:00)
[2020-10-16] MEDS: Heparin 5000 UNITS/ML 1 mL VIAL SUBCUT SCH (05:32)
[2020-10-16 05:58] LABS: Blood Urea Nitrogen 38 mg/dL (6-24); CO2 Carbon Dioxide 21 mmol/L (22-32); Calcium 8.8 mg/dL (8.6-10.3); Chloride 109 mmol/L (101-111); EGFR African American 30.9 (>60); EGFR Non-African American 25.5 (>60); Glucose 221 mg/dL (70-100); Sodium 137 mmol/L (135-145)
[2020-10-16 06:00] LABS: Anion Gap 7 mmol/L (2-11)
[2020-10-16] MEDS: Sodium Bicarb 650 mg (ANTACID) TAB PO SCH (08:16)
[2020-10-16] MEDS ORDERED: SEMAGLUTIDE 3 MG PO SCH (09:00)
[2020-10-16 11:22] VITALS: BP 128/64
[2020-10-16 14:51] LABS: CSF VDRL Negative (Negative)
[2020-10-17 18:06] LABS: Amphiphysin Ab, CSF Negative titer (<1:2); CRMP-5-IgG, CSF Negative titer (<1:2); PCA-1, CSF Negative titer (<1:2); PCA-2, CSF Negative titer (<1:2); PCA-Tr, CSF Negative titer (<1:2)
[2020-10-18 13:26] LABS: Anti-Glial/Neuronal Nuc Ab-1 A Negative titer (<1:240); Anti-Neuronal Nuclear Ab Type1 Negative titer (<1:240); Anti-Neuronal Nuclear Ab Type2 Negative titer (<1:240); Anti-Neuronal Nuclear Ab Type3 Negative titer (<1:240); Anti-Striated Muscle Antibody Negative titer (<1:120); CRMP-5 IgG Antibody Negative titer (<1:240); Purkinje Cell Cytoplasm Typ Tr Negative titer (<1:240); Purkinje Cell Cytoplasm Type 1 Negative titer (<1:240); Purkinje Cell Cytoplasm Type 2 Negative titer (<1:240)
== END 2020-10-16 13:05 | disposition home or self-care (01) | DRG 72 ==
LOC: ED 09:52 → MED 09:52
PROVIDERS: ADMIT Hospitalist; ATTEND Internal Medicine

== ENCOUNTER 2021-02-03 06:02 | Inpatient (IN) ==
[2021-02-03] MEDS ORDERED: NS 0.9% 1000 ml BAG 2,000 ML IV ONE (06:52)
[2021-02-03] MEDS ORDERED: Ondansetron 4 mg VIAL 2 MG/ML 2 ml VIAL IV ONE (06:52)
[2021-02-03] MEDS ORDERED: Morphine 2 MG/ML SYRINGE IV ONE ×2 (06:55→11:22)
[2021-02-03 07:24] LABS: ALT 16 U/L (7-52); Albumin 4.1 g/dL (3.2-5.2); Albumin/Globulin Ratio 1.3 (1-3); Alkaline Phosphatase 42 U/L (35-149); Blood Urea Nitrogen 42 mg/dL (6-24); C Reactive Protein 1.32 mg/L (<8.01); CO2 Carbon Dioxide 20 mmol/L (22-32); Calcium 8.8 mg/dL (8.6-10.3); Chloride 109 mmol/L (101-111); EGFR African American 25.6 (>60); EGFR Non-African American 21.1 (>60); Globulin 3.2 g/dL (2-4); Glucose 136 mg/dL (70-100); Lipase 111 U/L (11.0-82.0); Sodium 137 mmol/L (135-145); Total Protein 7.3 g/dL (6.4-8.9)
[2021-02-03 07:29] LABS: ABS Basophils 0.1 10^3/ul (0-0.2); ABS Eosinophils 0.3 10^3/ul (0-0.6); ABS Lymphocytes 1.3 10^3/ul (1.0-4.8); ABS Monocytes 0.5 10^3/ul (0-0.8); ABS Neutrophils 3.3 10^3/ul (1.5-7.7); Eosinophil % 6.1 %; Hematocrit 40 % (42-52); Hemoglobin 13.7 g/dL (14.0-18.0); Mean Corpuscular HGB Conc 34 g/dL (31-36); Mean Corpuscular Hemoglobin 33 pg (27-31); Mean Corpuscular Volume 97 fL (80-94); Mean Platelet Volume 7.9 fL (7.4-10.4); Platelet Count 175 10^3/uL (150-450); Red Blood Count 4.11 10^6 /uL (4.18-5.48); Red Cell Distribution Width 14 % (10-15); White Blood Count 5.5 10^3/uL (3.5-10.8)
[2021-02-03 07:37] LABS: INR 1.18 (0.86-1.15)
[2021-02-03 07:51] LABS: Ferritin 301.2 ng/mL (24-336)
[2021-02-03] MEDS ORDERED: Al Hydrox/Mg Hydrox/Simet LIQ 30 ML UDC PO ONE (08:41)
[2021-02-03 10:13] LABS: Anion Gap 8 mmol/L (2-11)
[2021-02-03] MEDS ORDERED: Famotidine IV 10 MG/ML 2 ml VIAL (20 mg) IV SLOW PU ONE (11:21)
[2021-02-03 13:43] LABS: Urine Appearance Clear; Urine Bilirubin Negative (Negative); Urine Blood Negative (Negative); Urine Color Straw; Urine Glucose Negative (Negative); Urine Ketones Negative (Negative); Urine Nitrite Negative (Negative); Urine Protein Negative (Negative); Urine Specific Gravity 1.012 (1.002-1.030); Urine Urobilinogen Negative (Negative)
[2021-02-03 15:55] LABS: Magnesium 2.1 mg/dL (1.9-2.7); Potassium Redraw 4.1 mmol/L (3.5-5.0)
[2021-02-03] MEDS ORDERED: Enoxaparin 30 MG/0.3 ML SYR SUBCUT SCH (17:00)
[2021-02-03] MEDS: Pantoprazole VIAL 40 MG VIAL IV SCH (17:11)
[2021-02-03] MEDS: Enoxaparin 30 MG/0.3 ML SYR SUBCUT SCH (17:12)
[2021-02-03] MEDS ORDERED: Dextrose 50% Syringe 50 ml 25 GM/50 ML SYRINGE IV PUSH PRN (18:59)
[2021-02-03] MEDS: Lactated Ringers 1000 ml BAG 1,000 ML IV SCH (20:18)
[2021-02-04] MEDS: Insulin GLARGINE 100 un/ml 10 ml VIAL SUBCUT SCH ×2 (00:04→21:56)
[2021-02-04 05:32] LABS: ABS Basophils 0.1 10^3/ul (0-0.2); ABS Eosinophils 0.4 10^3/ul (0-0.6); ABS Lymphocytes 1.5 10^3/ul (1.0-4.8); ABS Monocytes 0.7 10^3/ul (0-0.8); ABS Neutrophils 3.2 10^3/ul (1.5-7.7); Eosinophil % 7.1 %; Hematocrit 36 % (42-52); Hemoglobin 12.1 g/dL (14.0-18.0); Lymphocyte % 25.2 %; Mean Corpuscular HGB Conc 34 g/dL (31-36); Mean Corpuscular Hemoglobin 33 pg (27-31); Mean Corpuscular Volume 97 fL (80-94); Mean Platelet Volume 7.5 fL (7.4-10.4); Platelet Count 170 10^3/uL (150-450); Red Cell Distribution Width 14 % (10-15); White Blood Count 5.9 10^3/uL (3.5-10.8)
[2021-02-04 05:49] LABS: Calcium 8.2 mg/dL (8.6-10.3); EGFR African American 28.4 (>60); EGFR Non-African American 23.5 (>60); Potassium 4.1 mmol/L (3.5-5.0)
[2021-02-04 06:44] LABS: Hepatitis C Antibody Negative (Negative)
[2021-02-04] MEDS: Polyethylene Glycol 3350 17 GM PACKET PO SCH (07:39)
[2021-02-04] MEDS ORDERED: Insulin GLARGINE 100 un/ml 10 ml VIAL SUBCUT SCH (09:00)
[2021-02-04] MEDS: Pantoprazole VIAL 40 MG VIAL IV SCH (09:07)
[2021-02-04] MEDS: Lactated Ringers 1000 ml BAG 1,000 ML IV SCH (09:50)
[2021-02-04] MEDS ORDERED: Midazolam 10 mg/10 ml VIAL 1 mg/ml 10 ml VIAL (10 mg) ONE (11:31)
[2021-02-04] MEDS ORDERED: fentaNYL 100 mcg/2 ml 50 MCG/ML VIAL ONE (11:31)
[2021-02-04] MEDS: Pantoprazole 80 mg in NS BAG 80 MG/250 ML BAG IV SCH (13:51)
[2021-02-04] MEDS: Enoxaparin 30 MG/0.3 ML SYR SUBCUT SCH (17:38)
[2021-02-05] MEDS: Pantoprazole 80 mg in NS BAG 80 MG/250 ML BAG IV SCH ×3 (00:56→21:23)
[2021-02-05 06:01] LABS: ABS Eosinophils 0.4 10^3/ul (0-0.6); ABS Lymphocytes 1.3 10^3/ul (1.0-4.8); ABS Monocytes 0.7 10^3/ul (0-0.8); ABS Neutrophils 2.3 10^3/ul (1.5-7.7); Eosinophil % 8.6 %; Hematocrit 33 % (42-52); Hemoglobin 11.3 g/dL (14.0-18.0); Lymphocyte % 28.7 %; Mean Corpuscular HGB Conc 34 g/dL (31-36); Mean Corpuscular Hemoglobin 33 pg (27-31); Mean Corpuscular Volume 95 fL (80-94); Mean Platelet Volume 7.5 fL (7.4-10.4); Platelet Count 150 10^3/uL (150-450); Red Blood Count 3.46 10^6 /uL (4.18-5.48); Red Cell Distribution Width 14 % (10-15); White Blood Count 4.7 10^3/uL (3.5-10.8)
[2021-02-05 06:19] LABS: Calcium 8.2 mg/dL (8.6-10.3); EGFR African American 29.8 (>60); EGFR Non-African American 24.6 (>60); Potassium 4.1 mmol/L (3.5-5.0)
[2021-02-05] MEDS: Polyethylene Glycol 3350 17 GM PACKET PO SCH (08:28)
[2021-02-05] MEDS: Enoxaparin 30 MG/0.3 ML SYR SUBCUT SCH (17:57)
[2021-02-05] MEDS: Insulin GLARGINE 100 un/ml 10 ml VIAL SUBCUT SCH (21:26)
[2021-02-06 07:52] LABS: Hematocrit 33 % (42-52); Hemoglobin 11.6 g/dL (14.0-18.0); Mean Corpuscular HGB Conc 35 g/dL (31-36); Mean Corpuscular Hemoglobin 33 pg (27-31); Mean Corpuscular Volume 95 fL (80-94); Mean Platelet Volume 7.7 fL (7.4-10.4); Platelet Count 171 10^3/uL (150-450); Red Blood Count 3.47 10^6 /uL (4.18-5.48); Red Cell Distribution Width 14 % (10-15); White Blood Count 4.8 10^3/uL (3.5-10.8)
[2021-02-06 08:02] LABS: Calcium 8.2 mg/dL (8.6-10.3); EGFR African American 25.4 (>60); Potassium 4.1 mmol/L (3.5-5.0)
[2021-02-06] MEDS ORDERED: NS 0.9% 1000 ml BAG 1,000 ML IV SCH (08:15)
[2021-02-06] MEDS: Pantoprazole 80 mg in NS BAG 80 MG/250 ML BAG IV SCH ×3 (08:36→19:50)
[2021-02-06] MEDS: Polyethylene Glycol 3350 17 GM PACKET PO SCH (09:31)
[2021-02-06] MEDS: Enoxaparin 30 MG/0.3 ML SYR SUBCUT SCH (17:12)
[2021-02-06] MEDS: Insulin GLARGINE 100 un/ml 10 ml VIAL SUBCUT SCH (21:20)
[2021-02-07] MEDS: Pantoprazole 80 mg in NS BAG 80 MG/250 ML BAG IV SCH (06:17)
[2021-02-07 07:11] VITALS: BP 122/75
[2021-02-07 07:39] LABS: Calcium 8.1 mg/dL (8.6-10.3); EGFR African American 24.6 (>60); EGFR Non-African American 20.3 (>60)
[2021-02-07] MEDS: Polyethylene Glycol 3350 17 GM PACKET PO SCH (08:46)
== END 2021-02-07 10:00 | disposition home or self-care (01) | DRG 384 ==
LOC: ED 06:02 → SUATTDRO 16:10 → SSU 16:10
PROVIDERS: ADMIT Internal Medicine; ATTEND Internal Medicine

== ENCOUNTER 2021-03-05 07:58 | Inpatient (IN) ==
[2021-03-05 08:52] LABS: ABS Basophils 0.1 10^3/ul (0-0.2); ABS Eosinophils 0.5 10^3/ul (0-0.6); ABS Lymphocytes 1.3 10^3/ul (1.0-4.8); ABS Monocytes 0.5 10^3/ul (0-0.8); ABS Neutrophils 3.6 10^3/ul (1.5-7.7); Eosinophil % 7.9 %; Hematocrit 39 % (42-52); Hemoglobin 13.7 g/dL (14.0-18.0); Lymphocyte % 21.9 %; Mean Corpuscular HGB Conc 35 g/dL (31-36); Mean Corpuscular Hemoglobin 33 pg (27-31); Mean Corpuscular Volume 95 fL (80-94); Mean Platelet Volume 7.8 fL (7.4-10.4); Platelet Count 178 10^3/uL (150-450); Red Blood Count 4.12 10^6 /uL (4.18-5.48); Red Cell Distribution Width 14 % (10-15); Venous Bicarbonate HCO3 20.9 mmol/L (24-28)
[2021-03-05 09:09] LABS: ALT 27 U/L (7-52); AST 32 U/L (13-39); Albumin 4.1 g/dL (3.2-5.2); Albumin/Globulin Ratio 1.3 (1-3); Alkaline Phosphatase 62 U/L (35-149); Blood Urea Nitrogen 35 mg/dL (6-24); CO2 Carbon Dioxide 19 mmol/L (22-32); Calcium 9.7 mg/dL (8.6-10.3); EGFR African American 23.9 (>60); EGFR Non-African American 19.7 (>60); Globulin 3.2 g/dL (2-4); Glucose 147 mg/dL (70-100); Potassium 4.4 mmol/L (3.5-5.0); Sodium 142 mmol/L (135-145); Total Protein 7.3 g/dL (6.4-8.9)
[2021-03-05 09:10] LABS: Anion Gap 10 mmol/L (2-11); Chloride 113 mmol/L (101-111)
[2021-03-05 09:44] LABS: Alcohol, S < 13 mg/dL (<13)
[2021-03-05 09:59] LABS: TSH Ultra Thyroid Stim Horm 2.27 mcIU/mL (0.34-5.60)
[2021-03-05] MEDS ORDERED: LORazepam 2 mg VIAL 1 ml ONE (10:05)
[2021-03-05] MEDS ORDERED: LORazepam 2 mg VIAL 1 ml IV PUSH ONE ×2 (10:13→10:15)
[2021-03-05] MEDS ORDERED: Lorazepam PYXIS KEY PRN ×2 (10:13→10:15)
[2021-03-05 10:14] LABS: Prolactin 27.8 ng/mL (1.0-20.0)
[2021-03-05] MEDS ORDERED: levETIRAcetam 1000MG IVPREMIX 1,000 MG/100 ML BAG IVPB ONE (10:36)
[2021-03-05 11:13] LABS: C Reactive Protein 1.02 mg/L (<8.01)
[2021-03-05 12:11] LABS: Rapid COVID-19 Molecular Undetected (Undetected)
[2021-03-05] MEDS ORDERED: Dextrose 50% Syringe 50 ml 25 GM/50 ML SYRINGE IV PUSH PRN (13:03)
[2021-03-05 13:59] LABS: Vitamin B12 328 pg/mL (180-914)
[2021-03-05] MEDS: Enoxaparin 30 MG/0.3 ML SYR SUBCUT SCH (14:00)
[2021-03-05 14:09] LABS: Erythrocyte Sed Rate 13 mm/Hr (0-19)
[2021-03-05] MEDS: Lactulose 30 ml UDC PO SCH ×5 (15:44→22:32)
[2021-03-05] MEDS: Sodium Bicarb 650 mg (ANTACID) TAB PO SCH (20:21)
[2021-03-05] MEDS: Insulin GLARGINE 100 un/ml 10 ml VIAL SUBCUT SCH (20:38)
[2021-03-06] MEDS: Lactulose 30 ml UDC PO SCH ×11 (00:35→20:56)
[2021-03-06] MEDS: Sodium Bicarb 650 mg (ANTACID) TAB PO SCH ×2 (09:06→20:56)
[2021-03-06] MEDS: Aspirin EC 81 mg TAB.EC (enteric coated) PO SCH (09:06)
[2021-03-06] MEDS ORDERED: NS 0.9% 1000 ml BAG 1,000 ML IV SCH (10:15)
[2021-03-06] MEDS: Enoxaparin 30 MG/0.3 ML SYR SUBCUT SCH (12:30)
[2021-03-06] MEDS ORDERED: LaCOSAMide VIAL 150 MG in NS 0.9% 50 ML 50 ML IV ONE (15:00)
[2021-03-06 18:22] LABS: Urine Appearance Clear; Urine Bilirubin Negative (Negative); Urine Blood 1+ (Negative); Urine Color Yellow; Urine Glucose 1+(50 mg/dL) (Negative); Urine Ketones Negative (Negative); Urine Nitrite Negative (Negative); Urine Protein Negative (Negative); Urine Specific Gravity 1.015 (1.002-1.030); Urine Urobilinogen Negative (Negative)
[2021-03-06 18:36] LABS: Urine Bacteria Absent (Absent); Urine Red Blood Cell Trace(0-2/hpf) (Absent); Urine White Blood Cell 1+(6-10/hpf) (Absent)
[2021-03-06 18:48] LABS: Urine Benzodiazepine Screen None Detected (None Detect); Urine Cannabinoids Screen None Detected (None Detect); Urine Opiates Screen None Detected (None Detect)
[2021-03-06] MEDS ORDERED: Gadobenate (CONTRAST) 529 MG/ML 10 ML SDV IV ONE (19:10)
[2021-03-06] MEDS: Insulin GLARGINE 100 un/ml 10 ml VIAL SUBCUT SCH (20:58)
[2021-03-07 07:04] LABS: ABS Basophils 0.1 10^3/ul (0-0.2); ABS Eosinophils 0.5 10^3/ul (0-0.6); ABS Lymphocytes 1.4 10^3/ul (1.0-4.8); ABS Monocytes 0.6 10^3/ul (0-0.8); ABS Neutrophils 1.9 10^3/ul (1.5-7.7); Eosinophil % 12.1 %; Hematocrit 38 % (42-52); Hemoglobin 13.2 g/dL (14.0-18.0); Lymphocyte % 30.7 %; Mean Corpuscular HGB Conc 35 g/dL (31-36); Mean Corpuscular Hemoglobin 33 pg (27-31); Mean Corpuscular Volume 96 fL (80-94); Mean Platelet Volume 7.5 fL (7.4-10.4); Nucleated Red Blood Cells % 0.2; Platelet Count 166 10^3/uL (150-450); Red Blood Count 3.98 10^6 /uL (4.18-5.48); Red Cell Distribution Width 14 % (10-15); White Blood Count 4.4 10^3/uL (3.5-10.8)
[2021-03-07 07:23] LABS: Albumin 3.7 g/dL (3.2-5.2); Albumin/Globulin Ratio 1.3 (1-3); Calcium 9.3 mg/dL (8.6-10.3); EGFR African American 23.7 (>60); EGFR Non-African American 19.6 (>60); Globulin 2.8 g/dL (2-4); Potassium 3.8 mmol/L (3.5-5.0); Total Bilirubin 1.4 mg/dL (0.2-1.0); Total Protein 6.5 g/dL (6.4-8.9)
[2021-03-07] MEDS: Sodium Bicarb 650 mg (ANTACID) TAB PO SCH ×2 (10:11→20:40)
[2021-03-07] MEDS: Lactulose 30 ml UDC PO SCH ×4 (10:11→20:44)
[2021-03-07] MEDS: Aspirin EC 81 mg TAB.EC (enteric coated) PO SCH (10:11)
[2021-03-07] MEDS: Enoxaparin 30 MG/0.3 ML SYR SUBCUT SCH (13:15)
[2021-03-07 18:02] LABS: Anaplasma phagocytophilum Negative (Negative); B. miyamotoi PCR, B Negative (Negative); Babesia divergens/MO-1 Negative (Negative); Babesia ducani Negative (Negative); Ehrlichia chaffeensis Negative (Negative); Ehrlichia ewingii/canis Negative (Negative); Ehrlichia muris eauclairensis Negative (Negative)
[2021-03-07] MEDS ORDERED: Insulin GLARGINE 100 un/ml 10 ml VIAL SUBCUT SCH (21:00)
[2021-03-08 06:14] LABS: ABS Basophils 0.1 10^3/ul (0-0.2); ABS Eosinophils 0.5 10^3/ul (0-0.6); ABS Lymphocytes 1.4 10^3/ul (1.0-4.8); ABS Monocytes 0.5 10^3/ul (0-0.8); ABS Neutrophils 1.8 10^3/ul (1.5-7.7); Eosinophil % 11.7 %; Hematocrit 35 % (42-52); Lymphocyte % 32.6 %; Mean Corpuscular HGB Conc 35 g/dL (31-36); Mean Corpuscular Hemoglobin 33 pg (27-31); Mean Corpuscular Volume 96 fL (80-94); Mean Platelet Volume 7.5 fL (7.4-10.4); Nucleated Red Blood Cells % 0.1; Platelet Count 148 10^3/uL (150-450); Red Blood Count 3.63 10^6 /uL (4.18-5.48); Red Cell Distribution Width 14 % (10-15); White Blood Count 4.3 10^3/uL (3.5-10.8)
[2021-03-08 06:27] LABS: INR 1.2 (0.86-1.15)
[2021-03-08 06:31] LABS: Albumin 3.4 g/dL (3.2-5.2); Albumin/Globulin Ratio 1.3 (1-3); Calcium 8.6 mg/dL (8.6-10.3); EGFR African American 24.7 (>60); EGFR Non-African American 20.4 (>60); Globulin 2.6 g/dL (2-4); Potassium 3.8 mmol/L (3.5-5.0)
[2021-03-08] MEDS: Aspirin EC 81 mg TAB.EC (enteric coated) PO SCH (11:03)
[2021-03-08] MEDS: Lactulose 30 ml UDC PO SCH (11:04)
[2021-03-08] MEDS: Sodium Bicarb 650 mg (ANTACID) TAB PO SCH (11:05)
[2021-03-08 11:59] VITALS: BP 123/60
== END 2021-03-08 12:41 | disposition home or self-care (01) | DRG 100 ==
LOC: MEDTELE 07:58 → ED 07:58 → SUATTDRO 12:18 → MEDTELE 14:34
PROVIDERS: ADMIT Internal Medicine; ATTEND Internal Medicine

== ENCOUNTER 2021-08-05 11:36 | Observation (INO) ==
[2021-08-05 13:06] LABS: ABS Eosinophils 0.4 10^3/ul (0-0.6); ABS Lymphocytes 1.3 10^3/ul (1.0-4.8); ABS Monocytes 0.4 10^3/ul (0-0.8); ABS Neutrophils 2.1 10^3/ul (1.5-7.7); Hematocrit 41 % (42-52); Hemoglobin 14.1 g/dL (14.0-18.0); Lymphocyte % 30.1 %; Mean Corpuscular HGB Conc 34 g/dL (31-36); Mean Corpuscular Hemoglobin 33 pg (27-31); Mean Corpuscular Volume 97 fL (80-94); Mean Platelet Volume 8.2 fL (7.4-10.4); Nucleated Red Blood Cells % 0.1; Platelet Count 140 10^3/uL (150-450); Red Blood Count 4.27 10^6 /uL (4.18-5.48); Red Cell Distribution Width 14 % (10-15); White Blood Count 4.2 10^3/uL (3.5-10.8)
[2021-08-05 13:21] LABS: Activated Partial Thrombo Time 25.8 seconds (26.0-38.0); INR 1.2 (0.86-1.15)
[2021-08-05 13:26] LABS: Albumin 3.9 g/dL (3.2-5.2); Albumin/Globulin Ratio 1.4 (1-3); Calcium 9.3 mg/dL (8.6-10.3); Globulin 2.8 g/dL (2-4); HDL Cholesterol 28.3 mg/dL; Potassium 3.6 mmol/L (3.5-5.0); Total Bilirubin 1.3 mg/dL (0.2-1.0); Total Protein 6.7 g/dL (6.4-8.9); eGFR CKD-EPI 28.1 (>60)
[2021-08-05] MEDS ORDERED: NS 0.9% 1000 ml BAG 1,000 ML IV SCH (17:00)
[2021-08-05] MEDS ORDERED: Lactulose 30 ml UDC PO ONE (17:06)
[2021-08-05 18:01] LABS: TSH Ultra Thyroid Stim Horm 2.63 mcIU/mL (0.34-5.60)
[2021-08-05 18:15] LABS: PCO2 Arterial 29 mmHg (35-45); PO2 Arterial 93 mmHg (80-100)
[2021-08-05] MEDS ORDERED: Sodium Bicarb 650 mg (ANTACID) TAB PO SCH (21:00)
[2021-08-05] MEDS: Lactulose 30 ml UDC PO SCH (21:18)
[2021-08-05] MEDS: Insulin GLARGINE 100 un/ml 10 ml VIAL SUBCUT SCH (21:22)
[2021-08-05] MEDS: Enoxaparin 40 MG/0.4 ML SYR SUBCUT SCH (21:24)
[2021-08-06 06:36] LABS: Calcium 8.6 mg/dL (8.6-10.3); Potassium 3.6 mmol/L (3.5-5.0); eGFR CKD-EPI 27.7 (>60)
[2021-08-06] MEDS: Aspirin EC 81 mg TAB.EC (enteric coated) PO SCH (08:58)
[2021-08-06] MEDS: Lactulose 30 ml UDC PO SCH ×3 (09:00→20:00)
[2021-08-06] MEDS ORDERED: Cyanocobalamin INJ 1,000 MCG/ML VIAL 1 ML VIAL IM ONE (12:54)
[2021-08-06] MEDS: Enoxaparin 40 MG/0.4 ML SYR SUBCUT SCH (18:08)
[2021-08-06] MEDS: Insulin GLARGINE 100 un/ml 10 ml VIAL SUBCUT SCH (20:00)
[2021-08-07] MEDS: Aspirin EC 81 mg TAB.EC (enteric coated) PO SCH (09:04)
[2021-08-07] MEDS: Lactulose 30 ml UDC PO SCH ×2 (09:05→16:03)
[2021-08-07 10:46] VITALS: BP 122/76
[2021-08-08 11:00] LABS: Levetiracetam 43.9 mcg/mL
[2021-08-08 11:11] LABS: Lacosamide 8.2 mcg/mL (1.0 - 10.0)
== END 2021-08-07 16:25 | disposition home or self-care (01) ==
LOC: MED 11:36 → ED 11:36 → MED 18:37
PROVIDERS: ADMIT Hospitalist; ATTEND Hospitalist

== ENCOUNTER 2021-08-18 13:23 | Inpatient (IN) ==
[2021-08-18 14:29] LABS: ABS Basophils 0.1 10^3/ul (0-0.2); ABS Eosinophils 0.5 10^3/ul (0-0.6); ABS Monocytes 0.6 10^3/ul (0-0.8); Eosinophil % 7.7 %; Hematocrit 44 % (42-52); Hemoglobin 15.5 g/dL (14.0-18.0); Lymphocyte % 32.1 %; Mean Corpuscular HGB Conc 35 g/dL (31-36); Mean Corpuscular Hemoglobin 34 pg (27-31); Mean Corpuscular Volume 96 fL (80-94); Mean Platelet Volume 8.2 fL (7.4-10.4); Nucleated Red Blood Cells % 0.1; Platelet Count 207 10^3/uL (150-450); Red Blood Count 4.61 10^6 /uL (4.18-5.48); Red Cell Distribution Width 14 % (10-15); White Blood Count 6.2 10^3/uL (3.5-10.8)
[2021-08-18 14:46] LABS: Albumin 4.3 g/dL (3.2-5.2); Calcium 10.1 mg/dL (8.6-10.3); Total Bilirubin 1.9 mg/dL (0.2-1.0)
[2021-08-18 14:47] LABS: INR 1.17 (0.86-1.15)
[2021-08-18 14:52] LABS: Albumin/Globulin Ratio 1.5 (1-3); Globulin 2.9 g/dL (2-4); Total Protein 7.2 g/dL (6.4-8.9); eGFR CKD-EPI 23.1 (>60)
[2021-08-18] MEDS ORDERED: Lactated Ringers 500 ml BAG 500 ML IV ONE (15:47)
[2021-08-18] MEDS ORDERED: Lactulose 30 ml UDC PO ONE (15:47)
[2021-08-18] MEDS ORDERED: NS 0.9% 1000 ml BAG 1,000 ML IV SCH (17:15)
[2021-08-18 17:46] LABS: PCO2 Arterial 30 mmHg (35-45); PO2 Arterial 92 mmHg (80-100)
[2021-08-18] MEDS ORDERED: Dextrose 50% Syringe 50 ml 25 GM/50 ML SYRINGE IV PUSH PRN (18:07)
[2021-08-18] MEDS ORDERED: Lactulose 30 ml UDC PO SCH (21:00)
[2021-08-18] MEDS: Enoxaparin 30 MG/0.3 ML SYR SUBCUT SCH (22:14)
[2021-08-18] MEDS: Lactulose 30 ml UDC PO SCH (22:14)
[2021-08-18] MEDS: Sodium Bicarb 650 mg (ANTACID) TAB PO SCH (22:14)
[2021-08-18] MEDS: Insulin GLARGINE 100 un/ml 10 ml VIAL SUBCUT SCH (22:17)
[2021-08-19 06:30] LABS: Calcium 8.8 mg/dL (8.6-10.3); Potassium 3.6 mmol/L (3.5-5.0)
[2021-08-19 06:36] LABS: eGFR CKD-EPI 24.4 (>60)
[2021-08-19] MEDS: Aspirin EC 81 mg TAB.EC (enteric coated) PO SCH (08:55)
[2021-08-19] MEDS: Sodium Bicarb 650 mg (ANTACID) TAB PO SCH (08:55)
[2021-08-19] MEDS: Lactulose 30 ml UDC PO SCH ×4 (08:59→20:09)
[2021-08-19] MEDS: Enoxaparin 30 MG/0.3 ML SYR SUBCUT SCH (20:09)
[2021-08-19] MEDS: Insulin GLARGINE 100 un/ml 10 ml VIAL SUBCUT SCH (20:10)
[2021-08-20 05:27] LABS: ABS Basophils 0.1 10^3/ul (0-0.2); ABS Eosinophils 0.4 10^3/ul (0-0.6); ABS Lymphocytes 1.7 10^3/ul (1.0-4.8); ABS Monocytes 0.6 10^3/ul (0-0.8); ABS Neutrophils 2.3 10^3/ul (1.5-7.7); Eosinophil % 8.6 %; Hematocrit 37 % (42-52); Hemoglobin 12.8 g/dL (14.0-18.0); Lymphocyte % 33.2 %; Mean Corpuscular HGB Conc 35 g/dL (31-36); Mean Corpuscular Hemoglobin 34 pg (27-31); Mean Corpuscular Volume 97 fL (80-94); Mean Platelet Volume 8.9 fL (7.4-10.4); Platelet Count 167 10^3/uL (150-450); Red Blood Count 3.75 10^6 /uL (4.18-5.48); Red Cell Distribution Width 14 % (10-15); White Blood Count 5.2 10^3/uL (3.5-10.8)
[2021-08-20 05:48] LABS: Magnesium 1.9 mg/dL (1.9-2.7); Potassium 3.8 mmol/L (3.5-5.0)
[2021-08-20 05:54] LABS: eGFR CKD-EPI 24.1 (>60)
[2021-08-20] MEDS: Lactulose 30 ml UDC PO SCH ×3 (09:16→20:48)
[2021-08-20] MEDS: Aspirin EC 81 mg TAB.EC (enteric coated) PO SCH (09:17)
[2021-08-20] MEDS: Sodium Bicarb 650 mg (ANTACID) TAB PO SCH (09:17)
[2021-08-20] MEDS: Enoxaparin 30 MG/0.3 ML SYR SUBCUT SCH (20:46)
[2021-08-20] MEDS: Insulin GLARGINE 100 un/ml 10 ml VIAL SUBCUT SCH (21:10)
[2021-08-21 05:01] LABS: ABS Basophils 0.1 10^3/ul (0-0.2); ABS Eosinophils 0.6 10^3/ul (0-0.6); ABS Monocytes 0.7 10^3/ul (0-0.8); ABS Neutrophils 2.3 10^3/ul (1.5-7.7); Eosinophil % 10.6 %; Hematocrit 38 % (42-52); Hemoglobin 13.1 g/dL (14.0-18.0); Lymphocyte % 34.6 %; Mean Corpuscular HGB Conc 35 g/dL (31-36); Mean Corpuscular Hemoglobin 34 pg (27-31); Mean Corpuscular Volume 97 fL (80-94); Mean Platelet Volume 8.6 fL (7.4-10.4); Platelet Count 160 10^3/uL (150-450); Red Blood Count 3.87 10^6 /uL (4.18-5.48); Red Cell Distribution Width 14 % (10-15); White Blood Count 5.6 10^3/uL (3.5-10.8)
[2021-08-21 05:29] LABS: Calcium 9.2 mg/dL (8.6-10.3); Magnesium 1.9 mg/dL (1.9-2.7); Potassium 3.7 mmol/L (3.5-5.0); eGFR CKD-EPI 24.8 (>60)
[2021-08-21] MEDS: Lactulose 30 ml UDC PO SCH ×4 (09:22→20:26)
[2021-08-21] MEDS: Sodium Bicarb 650 mg (ANTACID) TAB PO SCH (09:23)
[2021-08-21] MEDS: Aspirin EC 81 mg TAB.EC (enteric coated) PO SCH ×3 (09:23→12:18)
[2021-08-21] MEDS: Enoxaparin 30 MG/0.3 ML SYR SUBCUT SCH (20:29)
[2021-08-21] MEDS: Insulin GLARGINE 100 un/ml 10 ml VIAL SUBCUT SCH (20:30)
[2021-08-22 06:22] LABS: ABS Basophils 0.1 10^3/ul (0-0.2); ABS Eosinophils 0.6 10^3/ul (0-0.6); ABS Lymphocytes 2.2 10^3/ul (1.0-4.8); ABS Monocytes 0.6 10^3/ul (0-0.8); ABS Neutrophils 2.2 10^3/ul (1.5-7.7); Eosinophil % 10.1 %; Hematocrit 39 % (42-52); Hemoglobin 13.5 g/dL (14.0-18.0); Mean Corpuscular HGB Conc 35 g/dL (31-36); Mean Corpuscular Hemoglobin 34 pg (27-31); Mean Corpuscular Volume 98 fL (80-94); Mean Platelet Volume 8.9 fL (7.4-10.4); Nucleated Red Blood Cells % 0.1; Platelet Count 169 10^3/uL (150-450); Red Blood Count 3.92 10^6 /uL (4.18-5.48); Red Cell Distribution Width 14 % (10-15); White Blood Count 5.7 10^3/uL (3.5-10.8)
[2021-08-22 06:46] LABS: Calcium 9.5 mg/dL (8.6-10.3); Magnesium 1.9 mg/dL (1.9-2.7); Potassium 4.1 mmol/L (3.5-5.0); eGFR CKD-EPI 25.5 (>60)
[2021-08-22] MEDS: Lactulose 30 ml UDC PO SCH ×4 (09:43→19:57)
[2021-08-22] MEDS: Aspirin EC 81 mg TAB.EC (enteric coated) PO SCH (09:43)
[2021-08-22] MEDS: Sodium Bicarb 650 mg (ANTACID) TAB PO SCH (09:44)
[2021-08-22] MEDS: SODIUM BENZOATE PO SCH ×2 (15:49→20:07)
[2021-08-22] MEDS: Enoxaparin 30 MG/0.3 ML SYR SUBCUT SCH (19:57)
[2021-08-22] MEDS: Insulin GLARGINE 100 un/ml 10 ml VIAL SUBCUT SCH (19:58)
[2021-08-23 05:58] LABS: ABS Basophils 0.1 10^3/ul (0-0.2); ABS Eosinophils 0.6 10^3/ul (0-0.6); ABS Lymphocytes 2.2 10^3/ul (1.0-4.8); ABS Monocytes 0.6 10^3/ul (0-0.8); ABS Neutrophils 2.2 10^3/ul (1.5-7.7); Eosinophil % 11.4 %; Hematocrit 39 % (42-52); Hemoglobin 13.8 g/dL (14.0-18.0); Lymphocyte % 38.8 %; Mean Corpuscular HGB Conc 35 g/dL (31-36); Mean Corpuscular Hemoglobin 34 pg (27-31); Mean Corpuscular Volume 98 fL (80-94); Mean Platelet Volume 8.5 fL (7.4-10.4); Nucleated Red Blood Cells % 0.1; Platelet Count 170 10^3/uL (150-450); Red Blood Count 4.04 10^6 /uL (4.18-5.48); Red Cell Distribution Width 14 % (10-15); White Blood Count 5.7 10^3/uL (3.5-10.8)
[2021-08-23 06:41] LABS: Calcium 9.6 mg/dL (8.6-10.3); Magnesium 1.8 mg/dL (1.9-2.7); Potassium 3.9 mmol/L (3.5-5.0); eGFR CKD-EPI 26.7 (>60)
[2021-08-23] MEDS: Lactulose 30 ml UDC PO SCH ×4 (08:57→20:44)
[2021-08-23] MEDS: SODIUM BENZOATE PO SCH ×3 (08:57→20:45)
[2021-08-23] MEDS: Sodium Bicarb 650 mg (ANTACID) TAB PO SCH (08:59)
[2021-08-23] MEDS: Aspirin EC 81 mg TAB.EC (enteric coated) PO SCH (08:59)
[2021-08-23 17:56] LABS: Levetiracetam 25.7 mcg/mL
[2021-08-23 19:00] LABS: Urine Appearance Clear; Urine Bilirubin Negative (Negative); Urine Blood 1+ (Negative); Urine Color Yellow; Urine Glucose 1+(50 mg/dL) (Negative); Urine Ketones Negative (Negative); Urine Nitrite Negative (Negative); Urine Protein Negative (Negative); Urine Specific Gravity 1.026 (1.002-1.030); Urine Urobilinogen Negative (Negative)
[2021-08-23 19:06] LABS: Urine Bacteria Absent (Absent); Urine Red Blood Cell Trace(0-2/hpf) (Absent); Urine White Blood Cell 1+(6-10/hpf) (Absent)
[2021-08-23] MEDS: Insulin GLARGINE 100 un/ml 10 ml VIAL SUBCUT SCH (20:46)
[2021-08-23] MEDS: Enoxaparin 30 MG/0.3 ML SYR SUBCUT SCH (20:46)
[2021-08-23 21:23] LABS: Lacosamide 8.4 mcg/mL (1.0 - 10.0)
[2021-08-24 06:09] LABS: ABS Basophils 0.1 10^3/ul (0-0.2); ABS Eosinophils 0.6 10^3/ul (0-0.6); ABS Lymphocytes 1.8 10^3/ul (1.0-4.8); ABS Monocytes 0.5 10^3/ul (0-0.8); ABS Neutrophils 1.9 10^3/ul (1.5-7.7); Eosinophil % 11.6 %; Hematocrit 36 % (42-52); Hemoglobin 12.5 g/dL (14.0-18.0); Lymphocyte % 36.7 %; Mean Corpuscular HGB Conc 35 g/dL (31-36); Mean Corpuscular Hemoglobin 34 pg (27-31); Mean Corpuscular Volume 98 fL (80-94); Mean Platelet Volume 8.7 fL (7.4-10.4); Platelet Count 153 10^3/uL (150-450); Red Blood Count 3.63 10^6 /uL (4.18-5.48); Red Cell Distribution Width 14 % (10-15); White Blood Count 4.8 10^3/uL (3.5-10.8)
[2021-08-24 07:11] LABS: Calcium 9.2 mg/dL (8.6-10.3)
[2021-08-24 07:17] LABS: eGFR CKD-EPI 29.9 (>60)
[2021-08-24] MEDS: Lactulose 30 ml UDC PO SCH ×4 (08:29→21:28)
[2021-08-24] MEDS: Sodium Bicarb 650 mg (ANTACID) TAB PO SCH (08:30)
[2021-08-24] MEDS: Aspirin EC 81 mg TAB.EC (enteric coated) PO SCH (08:30)
[2021-08-24] MEDS: SODIUM BENZOATE PO SCH ×3 (08:42→21:29)
[2021-08-24] MEDS ORDERED: cefTRIAXone 1 gm/50 mL NS BAG 1 GM/50 ML BAG IVPB SCH (12:30)
[2021-08-24] MEDS: Enoxaparin 30 MG/0.3 ML SYR SUBCUT SCH (21:28)
[2021-08-24] MEDS ORDERED: Insulin GLARGINE 100 un/ml 10 ml VIAL SUBCUT ONE (22:11)
[2021-08-24] MEDS: Insulin GLARGINE 100 un/ml 10 ml VIAL SUBCUT SCH (23:05)
[2021-08-25 06:05] LABS: ABS Basophils 0.1 10^3/ul (0-0.2); ABS Eosinophils 0.5 10^3/ul (0-0.6); ABS Lymphocytes 1.6 10^3/ul (1.0-4.8); ABS Monocytes 0.5 10^3/ul (0-0.8); ABS Neutrophils 1.9 10^3/ul (1.5-7.7); Eosinophil % 11.5 %; Hematocrit 35 % (42-52); Hemoglobin 12.1 g/dL (14.0-18.0); Lymphocyte % 34.5 %; Mean Corpuscular HGB Conc 35 g/dL (31-36); Mean Corpuscular Hemoglobin 34 pg (27-31); Mean Corpuscular Volume 98 fL (80-94); Mean Platelet Volume 8.3 fL (7.4-10.4); Nucleated Red Blood Cells % 0.2; Platelet Count 132 10^3/uL (150-450); Red Blood Count 3.54 10^6 /uL (4.18-5.48); Red Cell Distribution Width 14 % (10-15); White Blood Count 4.5 10^3/uL (3.5-10.8)
[2021-08-25 06:42] LABS: Albumin 3.1 g/dL (3.2-5.2); Albumin/Globulin Ratio 1.5 (1-3); Calcium 9.2 mg/dL (8.6-10.3); Globulin 2.1 g/dL (2-4); Potassium 3.8 mmol/L (3.5-5.0); Total Bilirubin 0.5 mg/dL (0.2-1.0); Total Protein 5.2 g/dL (6.4-8.9); eGFR CKD-EPI 29.7 (>60)
[2021-08-25] MEDS: SODIUM BENZOATE PO SCH ×2 (08:47→15:01)
[2021-08-25] MEDS: Aspirin EC 81 mg TAB.EC (enteric coated) PO SCH (08:48)
[2021-08-25] MEDS: Sodium Bicarb 650 mg (ANTACID) TAB PO SCH (08:48)
[2021-08-25] MEDS: Lactulose 30 ml UDC PO SCH ×2 (08:48→12:09)
[2021-08-25 11:20] LABS: Zinc 0.57 mcg/mL (0.66-1.10)
[2021-08-25 12:59] LABS: INR 1.23 (0.86-1.15)
[2021-08-25 15:30] VITALS: BP 111/57
== END 2021-08-25 17:10 | disposition home or self-care (01) | DRG 442 ==
LOC: EDHOLD 13:23 → ED 13:23 → MED 21:06 → SUATTDRO 08-19 12:13
PROVIDERS: ADMIT Hospitalist; ATTEND Internal Medicine

== ENCOUNTER 2021-12-26 16:18 | Observation (INO) ==
[2021-12-26 17:18] LABS: ABS Basophils 0.1 10^3/ul (0-0.2); ABS Eosinophils 0.7 10^3/ul (0-0.6); ABS Lymphocytes 1.9 10^3/ul (1.0-4.8); ABS Monocytes 0.6 10^3/ul (0-0.8); Eosinophil % 11.6 %; Hematocrit 43 % (42-52); Hemoglobin 14.3 g/dL (14.0-18.0); Lymphocyte % 29.4 %; Mean Corpuscular HGB Conc 33 g/dL (31-36); Mean Corpuscular Hemoglobin 32 pg (27-31); Mean Corpuscular Volume 96 fL (80-94); Mean Platelet Volume 8.2 fL (7.4-10.4); Nucleated Red Blood Cells % 0.1; Platelet Count 168 10^3/uL (150-450); Red Blood Count 4.46 10^6 /uL (4.18-5.48); Red Cell Distribution Width 14 % (10-15); White Blood Count 6.4 10^3/uL (3.5-10.8)
[2021-12-26 17:44] LABS: ALT 21 U/L (7-52); AST 33 U/L (13-39); Albumin/Globulin Ratio 1.5 (1-3); Alkaline Phosphatase 66 U/L (35-149); Anion Gap 10 mmol/L (2-11); Blood Urea Nitrogen 24 mg/dL (6-24); C Reactive Protein < 1.00 mg/L (<8.01); CO2 Carbon Dioxide 23 mmol/L (22-32); Calcium 9.6 mg/dL (8.6-10.3); Chloride 111 mmol/L (101-111); Globulin 2.7 g/dL (2-4); Glucose 128 mg/dL (70-100); Potassium 3.7 mmol/L (3.5-5.0); Sodium 144 mmol/L (135-145); Total Protein 6.7 g/dL (6.4-8.9); eGFR CKD-EPI 23.7 (>60)
[2021-12-26 18:57] LABS: INR 1.2 (0.86-1.15)
[2021-12-26 19:26] LABS: Magnesium 1.7 mg/dL (1.9-2.7)
[2021-12-26] MEDS ORDERED: Potassium Chlor 20 meq TAB.ER PO ONE (19:59)
[2021-12-26] MEDS ORDERED: Magnesium Sulf 4 GM/100 ML IV 4,000 MG/100 ML BAG IVPB ONE (19:59)
[2021-12-26] MEDS: Heparin 5000 UNITS/ML 1 mL VIAL SUBCUT SCH (21:51)
[2021-12-26] MEDS: Lactulose 30 ml UDC PO SCH (23:37)
[2021-12-26] MEDS: Sodium Bicarb 650 mg (ANTACID) TAB PO SCH (23:44)
[2021-12-27 00:47] LABS: Urine Appearance Clear; Urine Bilirubin Negative (Negative); Urine Blood Negative (Negative); Urine Color Yellow; Urine Glucose Negative (Negative); Urine Ketones Negative (Negative); Urine Nitrite Negative (Negative); Urine Protein Negative (Negative); Urine Specific Gravity 1.025 (1.005-1.030); Urine Urobilinogen 1.0 (Negative) (Negative); Urine pH 6.5 (5.0-9.0)
[2021-12-27 05:45] LABS: Hematocrit 39 % (42-52); Mean Corpuscular HGB Conc 34 g/dL (31-36); Mean Corpuscular Hemoglobin 32 pg (27-31); Mean Corpuscular Volume 96 fL (80-94); Mean Platelet Volume 8.4 fL (7.4-10.4); Platelet Count 149 10^3/uL (150-450); Red Blood Count 4.02 10^6 /uL (4.18-5.48); Red Cell Distribution Width 14 % (10-15); White Blood Count 5.9 10^3/uL (3.5-10.8)
[2021-12-27] MEDS: Lactulose 30 ml UDC PO SCH ×4 (05:45→23:48)
[2021-12-27] MEDS: Heparin 5000 UNITS/ML 1 mL VIAL SUBCUT SCH ×3 (05:46→22:15)
[2021-12-27 05:53] LABS: ABS Basophils 0.1 10^3/ul (0-0.2); ABS Eosinophils 0.6 10^3/ul (0-0.6); ABS Lymphocytes 1.8 10^3/ul (1.0-4.8); ABS Monocytes 0.6 10^3/ul (0-0.8); ABS Neutrophils 2.7 10^3/ul (1.5-7.7); Lymphocyte % 30.9 %; Nucleated Red Blood Cells % 0.1
[2021-12-27 05:54] LABS: INR 1.18 (0.86-1.15)
[2021-12-27 06:00] LABS: Albumin 3.5 g/dL (3.2-5.2); Albumin/Globulin Ratio 1.5 (1-3); Calcium 9.2 mg/dL (8.6-10.3); Globulin 2.4 g/dL (2-4); Magnesium 2.3 mg/dL (1.9-2.7); Potassium 3.7 mmol/L (3.5-5.0); Total Bilirubin 1.1 mg/dL (0.2-1.0); Total Protein 5.9 g/dL (6.4-8.9); eGFR CKD-EPI 26.6 (>60)
[2021-12-27] MEDS: Sodium Bicarb 650 mg (ANTACID) TAB PO SCH ×2 (09:19→22:13)
[2021-12-27] MEDS: SEMAGLUTIDE 14 MG PO SCH (09:20)
[2021-12-27] MEDS ORDERED: Insulin GLARGINE 100 un/ml 10 ml VIAL SUBCUT SCH (21:00)
[2021-12-28] MEDS: Heparin 5000 UNITS/ML 1 mL VIAL SUBCUT SCH (05:33)
[2021-12-28] MEDS: Lactulose 30 ml UDC PO SCH ×2 (05:33→12:26)
[2021-12-28 06:12] LABS: ABS Basophils 0.1 10^3/ul (0-0.2); ABS Eosinophils 0.7 10^3/ul (0-0.6); ABS Lymphocytes 1.7 10^3/ul (1.0-4.8); ABS Monocytes 0.6 10^3/ul (0-0.8); ABS Neutrophils 2.3 10^3/ul (1.5-7.7); Eosinophil % 12.3 %; Hematocrit 37 % (42-52); Hemoglobin 12.4 g/dL (14.0-18.0); Lymphocyte % 31.3 %; Mean Corpuscular HGB Conc 34 g/dL (31-36); Mean Corpuscular Hemoglobin 33 pg (27-31); Mean Corpuscular Volume 98 fL (80-94); Mean Platelet Volume 8.1 fL (7.4-10.4); Platelet Count 132 10^3/uL (150-450); Red Blood Count 3.74 10^6 /uL (4.18-5.48); Red Cell Distribution Width 14 % (10-15); White Blood Count 5.3 10^3/uL (3.5-10.8)
[2021-12-28 06:47] LABS: Albumin 3.3 g/dL (3.2-5.2); Albumin/Globulin Ratio 1.4 (1-3); Calcium 8.8 mg/dL (8.6-10.3); Globulin 2.3 g/dL (2-4); Magnesium 1.8 mg/dL (1.9-2.7); Total Bilirubin 1.1 mg/dL (0.2-1.0); Total Protein 5.6 g/dL (6.4-8.9)
[2021-12-28] MEDS: Sodium Bicarb 650 mg (ANTACID) TAB PO SCH (09:23)
[2021-12-28 11:26] VITALS: BP 132/64
[2021-12-28] MEDS: SEMAGLUTIDE 14 MG PO SCH (12:26)
[2021-12-30 11:53] LABS: Lacosamide 8.8 mcg/mL (1.0 - 10.0)
[2022-01-01 09:35] LABS: Levetiracetam 27.1 mcg/mL
== END 2021-12-28 12:55 | disposition home or self-care (01) ==
LOC: EDHOLD 16:18 → ED 16:18 → SUATTDRO 19:36 → MED 22:23
PROVIDERS: ADMIT Internal Medicine; ATTEND Internal Medicine